=== PATIENT | male | born 1940 | race Caucasian/White ===

== ENCOUNTER 2016-11-08 15:45 | Observation (INO) | payer MEDICARE, MEDICAID ==
[~2016-11-08] VITALS: Ht 195.6 cm; Wt 89.0 kg
[~2016-11-08 15:45] MED LIST: ACIPHEX20 MG OR; ADLT ASA LOW81 MG PO; ASPIRIN EC325 MG PO; ASPIRIN LOW DOS81 M2 PO; BABY ASPIRIN81 MG OR; CHOLESTEROL MEDICINE; CIPRO500 MG OR; CIPROFLOXACN500 MG PO; DARVOCET N-100100 - OR; DARVOCET-N 100100 MG OR; DIGOXIN0.25 MG OR; FLOMAX0.4 M1 PO; HEART MEDICINE; IMDUR30 MG PO; INDOCIN SR75 MG OR; ISOSORB MONO30 MG PO; LASIX 20 MG TAB20 MG PO; LASIX40 MG OR; LISINOPRIL10 MG PO; LISINOPRIL2.5 MG PO; LISINOPRIL5 MG PO; LOPRESSOR25 M1 PO; LOPRESSOR25 MG OR; LORTAB 7.57.5 MG PO; MEDDOSEPAK PO; NAPROSYN500 MG PO; NITROGLYCER0.4 MG SL; NO HOME MEDS; NON ASPIRI2 OR; PLAVIX75 MG OR; PLAVIX75 MG PO; PRILOSEC20 MG OR; SILVADENE1 % EX; SIMVASTATIN40 MG PO; ST JOSEPH75 MG PO; VENTOLIN HFA IN; ZOCOR10 MG PO; ZOCOR40 MG OR; ZOFRAN ODT4 MG OR; [UNRECOGNIZED DRUG - OTHER]
--- NOTE | 2016-11-08 16:04 | NUR ---
TO ROOM 13 VIA WC IN STABLE CONDITION.
--- NOTE | 2016-11-08 17:00 | NUR ---
PATIENT RESTING AWAITING LAB AND RADIOLOGY RESULTS. PATIENT DENIES ANY CHEST PAIN OR SOB AT THIS TIME
[2016-11-08 17:16] LABS: HEMATOCRIT 39.1 % (39.0-50.0); HEMOGLOBIN 13.6 g/dl (14.0-18.0); IMMATURE GRANULOCYTES 0.4 % (0.0-1.0); MEAN CELL VOLUME 87.1 fL CALC (80.0-100.0); MEAN CORPUSCULAR HGB 30.3 pG CALC (26.0-32.0); MEAN CORPUSCULAR HGB CONC 34.8 g/L CALC (32.0-36.0); NEUT# 5.76 thou/uL (1.82-7.42); RED BLOOD COUNT 4.49 mill/uL (4.70-6.10); RED CELL DISTRI WIDTH 13.5 % (11.5-15.5)
[2016-11-08 17:34] LABS: PROTHROMBIN TIME 11.2 SECONDS (9.0-12.5)
[2016-11-08 17:39] LABS: ALBUMIN 4.1 g/dL (3.2-5.0); ALKALINE PHOSPHATASE 70 u/l (38-126); AMYLASE 123 u/l (30-110); ANION GAP 17 (6-22 (CALC)); BILIRUBIN, TOTAL 0.8 mg/dL (0.0-1.4); BUN 32 mg/dL (8-23); BUN/CREATININE RATIO 14 (12-20 (CALC)); CALCIUM 9.7 mg/dL (8.4-10.2); CARBON DIOXIDE 23 mmol/l (22-30); CHLORIDE 106 mmol/l (95-108); CREATININE 2.3 mg/dL (0.7-1.3); GFR 28 ML/MIN (>=60 (CALC)); GFR FOR AFR.AMER. 34 ML/MIN (>=60 (CALC)); GLUCOSE 88 mg/dL (82-115); LIPASE 130 u/l (23-300); POTASSIUM 4.7 mmol/l (3.5-5.1); SGOT/AST 22 u/l (19-48); SGPT/ALT 24 u/l (11-66); SODIUM 141 mmol/l (137-146); TOTAL PROTEIN 7.6 g/dL (6.3-8.2)
[2016-11-08 17:51] LABS: MYOGLOBIN 97 ng/mL (0 - 121)
--- NOTE | 2016-11-08 18:00 | NUR ---
PATIENT RESTING DENIES ANY CHEST PAIN AT THIS TIME. PATIENT AWAITING ROOM ASSIGNMENT
--- NOTE | 2016-11-08 18:32 | NUR ---
MED SURG REFUSES TO TAKE REPORT ON PATIENT CHARGE NURSE NOTIFIED
--- NOTE | 2016-11-08 18:52 | NUR ---
REPORT TO REGINALDO PONCE
[2016-11-08 19:15] VITALS: BP 133/75
--- NOTE | 2016-11-08 20:00 | NUR ---
PATIENT ADMITTED FROM ER VIA STRETCHER WITH ER STAFF IN ATTENDANCE. PATIENT IS AWAKE ALERT AND ORIENTEDX3. ASSSITED TO THE BED. PATIENT WITH NO C/O PAIN AT THIS TIME. NO SOB NOTED. PATIENT WITH HEP LOCK TO RIGHT AC-SITE APPEARS HEALTHY WITH GOOD BLOOD RETURN. IVF NS HUNG ORDERED. PATIENT WITH TELE MONITORING IN PLACE. LUNGS ARE CLEAR. ABD SOFT NON-TENDER WITH BS PRESENT. NO PERIPHERAL EDEMA NOTED. PEDAL PULSES PRESENT. PATIENT ORIENTED TO ROOM AND SURROUNDINGS. INSTRUCTED PATIENT THE NEED FOR URINE SPEC WHEN HE IS ABLE TO PROVIDE. URINAL AT BEDSIDE. INSTRUCTED ON USE OF NURSE CALL LIGHT SYSTEM AND TV REMOTE. PROVIDED WITH TURKEY SANDWICH, JELLO AND DRINK. CALL LIGHT IN REACH. WILL CONT TO MONITOR.
--- NOTE | 2016-11-09 00:20 | NUR ---
PATIENT VOIDED 350CC OF JESSIKA URINE IN URINAL AND URINE SPEC OBTAINED. NO COMPLAINTS AT THIS TIME RESTING IN BED. CALL LIGHT IN REACH. WILL CONT TO MONITOR
[2016-11-09 00:30] VITALS: BP 120/65
[2016-11-09 00:32] LABS: URINE BILIRUBIN - DIPSTICK NEGATIVE (NEGATIVE); URINE BLOOD DIPSTICK NEGATIVE (NEGATIVE); URINE CLARITY SLIGHT CLOUDY; URINE COLOR YELLOW; URINE GLUCOSE - DIPSTICK NEGATIVE (NEGATIVE); URINE KETONE NEGATIVE (NEGATIVE); URINE LEUK ESTERASE NEGATIVE (NEGATIVE); URINE NITRITE - DIPSTICK NEGATIVE (Negative); URINE PH 5.5 (4.5-8.0); URINE PROTEIN - DIPSTICK NEGATIVE (NEG-TRACE); URINE SPECIFIC GRAVITY 1.025; URINE UROBILINOGEN - DIPSTICK 0.2 E.U./dL (0.2)
[2016-11-09 03:25] VITALS: BP 122/66
--- NOTE | 2016-11-09 03:49 | NUR ---
PATIENT C/O HEADACHE-NITRO OINT PATCH REMOVED AND PATIENT WAS ALREADY EDUCATED ON THE POSSIBLE S/E OF THE NITRO OINT WHICH DOES INCLUDE HEADACHE. ASSISTED TO THE SIDE OF THE BED TO VOID. CALL LIGHT IN REACH. WILL CONT TO MONITOR.
[2016-11-09 04:22] LABS: HEMATOCRIT 37.5 % (39.0-50.0); HEMOGLOBIN 12.8 g/dl (14.0-18.0); IMMATURE GRANULOCYTES 0.4 % (0.0-1.0); MEAN CELL VOLUME 87.4 fL CALC (80.0-100.0); MEAN CORPUSCULAR HGB 29.8 pG CALC (26.0-32.0); MEAN CORPUSCULAR HGB CONC 34.1 g/L CALC (32.0-36.0); NEUT# 4.38 thou/uL (1.82-7.42); RED BLOOD COUNT 4.29 mill/uL (4.70-6.10); RED CELL DISTRI WIDTH 13.6 % (11.5-15.5)
[2016-11-09 04:33] LABS: CREATININE 1.8 mg/dL (0.7-1.3); POTASSIUM 4.1 mmol/l (3.5-5.1)
--- NOTE | 2016-11-09 07:00 | NUR ---
SHIFT CHANGE REPORT FROM ISELA HAIR PLEASANTLY AWAKE ALERT AND ORIENTED SITTING UP IN BED, DENIES DISCOMFORT OF ANY SORT AT THIS TIME, IVF INFUSING, TELE MONITOR IN PLACE, CALL NIEVES IN REACH.
[2016-11-09 08:17] VITALS: BP 140/73
[2016-11-09 11:44] VITALS: BP 105/61
--- NOTE | 2016-11-09 13:30 | NUR ---
Discharge instructions given. Patient verbalizes understanding of same. Discharged in good condition via Wheelchair to Home with family. All belongings sent with pt.
== END 2016-11-09 13:20 | disposition home or self-care (01) ==
LOC: ENPENDDIS → ED 15:45 → ED-I 17:50 → ED 18:22 → MS2 18:23
PROVIDERS: Emergency Medicine; ADMIT Internal Medicine; ATTEND Internal Medicine
DX: R07.2 Precordial pain (principal); N17.9 Acute kidney failure, unspecified; I25.10 Atherosclerotic heart disease of native coronary artery without angina pectoris; N18.4 Chronic kidney disease, stage 4 (severe); I12.9 Hypertensive chronic kidney disease with stage 1 through stage 4 chronic kidney disease, or unspecified chronic kidney disease; E78.5 Hyperlipidemia, unspecified; E86.0 Dehydration; Z95.1 Presence of aortocoronary bypass graft; Z85.46 Personal history of malignant neoplasm of prostate; R06.02 Shortness of breath

== ENCOUNTER 2017-03-11 11:54 | Observation (INO) | payer MEDICARE, MEDICAID ==
[~2017-03-11] VITALS: Ht 195.6 cm; Wt 84.5 kg
--- NOTE | 2017-03-11 12:00 | NUR ---
PT ARRIVES AND IMMEDIATELY TO ROOM 9 VIA WC.
[2017-03-11 12:26] LABS: HEMATOCRIT 36.9 % (39.0-50.0); HEMOGLOBIN 12.9 g/dl (14.0-18.0); MEAN CELL VOLUME 88.3 fL CALC (80.0-100.0); MEAN CORPUSCULAR HGB 30.9 pG CALC (26.0-32.0); NEUT# 5.38 thou/uL (1.82-7.42); RED BLOOD COUNT 4.18 mill/uL (4.70-6.10); RED CELL DISTRI WIDTH 13.2 % (11.5-15.5)
[2017-03-11 12:51] LABS: ALBUMIN 4.2 g/dL (3.2-5.0); BILIRUBIN, TOTAL 0.9 mg/dL (0.0-1.4); CALCIUM 9.4 mg/dL (8.4-10.2); CREATININE 1.7 mg/dL (0.7-1.3); POTASSIUM 4.1 mmol/l (3.5-5.1); TOTAL PROTEIN 7.4 g/dL (6.3-8.2)
--- NOTE | 2017-03-11 13:29 | NUR ---
SBAR PRINTED TO FLOOR
--- NOTE | 2017-03-11 13:53 | NUR ---
ATTEMPTED REPORT TO MEDSURG NURSE, MEDSURG NURSE IN PATIENT ROOM
--- NOTE | 2017-03-11 14:13 | NUR ---
ATTEMPTED TO CALL REPORT AGAIN ON PT, NURSE ON [facility] STILL IN ROOM
--- NOTE | 2017-03-11 14:39 | NUR ---
NURSE ON MEDSURG NOT AVAILABLE FOR REPORT
--- NOTE | 2017-03-11 15:02 | NUR ---
REPORT PROVIDED TO ROSARIO WALKER
--- NOTE | 2017-03-11 15:10 | NUR ---
REPORT RECEIVED FROM CANDIE IN ED, PT ARRIVED ON UNIT VIA STRETCHER AND TRANSFERRED TO BED, ALERT AND ORIENTED X 3, ORIENTED TO ROOM AND CALL NIEVES, DENIES PAIN AT THIS TIME, TELE MONITOR IN PLACE, CALL NIEVES IN REACH.
[2017-03-11 15:22] VITALS: BP 108/55
--- NOTE | 2017-03-11 18:02 | NUR ---
MESSAGE FROM DR LUGO THAT HE WILL PLACE ORDERS LATER WHEN OFF STREET.
[2017-03-11 19:07] VITALS: BP 124/64
--- NOTE | 2017-03-11 20:00 | NUR ---
PT IN [place] WATCHING TV RESTPIRATIONS EVEN AND UNLABORED, DENIES CHEST PAIN. FAMILY AT BED SIDE. TELE IN PLACE. CALL LIGHT IN REACH.
[2017-03-11 21:18] LABS: URINE BILIRUBIN - DIPSTICK NEGATIVE (NEGATIVE); URINE BLOOD DIPSTICK NEGATIVE (NEGATIVE); URINE CLARITY CLEAR; URINE COLOR YELLOW; URINE GLUCOSE - DIPSTICK NEGATIVE (NEGATIVE); URINE KETONE NEGATIVE (NEGATIVE); URINE LEUK ESTERASE NEGATIVE (NEGATIVE); URINE NITRITE - DIPSTICK NEGATIVE (Negative); URINE PH 5.5 (4.5-8.0); URINE PROTEIN - DIPSTICK NEGATIVE (NEG-TRACE); URINE SPECIFIC GRAVITY 1.025
--- NOTE | 2017-03-11 21:22 | NUR ---
PO MEDS GIVEN ABLE TO SWALLOWED THEM AT ONE TIME WITH SIPS OF TEA.
[2017-03-11 23:15] VITALS: BP 116/65
--- NOTE | 2017-03-12 00:20 | NUR ---
RESTING WITH EYES CLOSED, RESPIRATIONS EVEN AND UNLABORED.
[2017-03-12 03:40] VITALS: BP 115/63
--- NOTE | 2017-03-12 05:26 | NUR ---
MORNING BLOOD WORK DRAWN BY DIRECTOR OF REVENUE CYCLE MANAGEMENT, TOLERATED WELL.
[2017-03-12 06:10] LABS: CHOLESTEROL HDL RATIO 2.6 (<4.4 (CALC))
--- NOTE | 2017-03-12 07:00 | NUR ---
RECEIVED BEDSIDE REPORT FROM SHANNON STEVENS. RESTING IN SEMI FOWLERS WITH EYES OPEN. RESPS EVEN AND UNLABORED ON ROOM AIR, TELE MONITOR IN PLACE. DENIES CHEST PAIN OR DISCOMFORT. PLAN OF CARE DISCUSSED. SAFETY PRECAUTIONS REINFORCED. BED IN LOWEST POSITIUON WITH WHEELS LOCKED. CALL LIGHT WITHIN REACH. ENCOURAGED PT TO CALL FOR ANY NEEDS.
[2017-03-12 07:27] VITALS: BP 118/63
[2017-03-12 11:14] VITALS: BP 110/56
--- NOTE | 2017-03-12 12:05 | NUR ---
DR BOSWELL IN WITH PT, NEW ORDERS RECEIVED.
[2017-03-12] MEDS ORDERED: ASPIRIN ADULT L81 M2 PO (12:20)
[2017-03-12] MEDS ORDERED: TESSALON PERLE100 MG PO (12:21)
[2017-03-12] MEDS ORDERED: NITROSTAT0.3 MG SL (12:21)
--- NOTE | 2017-03-12 13:00 | NUR ---
Discharge instructions given. Patient verbalizes understanding of same. Discharged in stable condition via Wheelchair to Home with family. All belongings sent with pt.
== END 2017-03-12 12:59 | disposition home or self-care (01) ==
LOC: ED 11:54 → ED-I 13:17 → ED 13:35 → MS2 13:36
PROVIDERS: Family Medicine; ADMIT Internal Medicine; ATTEND Internal Medicine
DX: R07.9 Chest pain, unspecified (principal); I25.10 Atherosclerotic heart disease of native coronary artery without angina pectoris; I12.9 Hypertensive chronic kidney disease with stage 1 through stage 4 chronic kidney disease, or unspecified chronic kidney disease; N18.3 Chronic kidney disease, stage 3 (moderate); E78.5 Hyperlipidemia, unspecified; R59.0 Localized enlarged lymph nodes; J38.00 Paralysis of vocal cords and larynx, unspecified; R63.4 Abnormal weight loss; Z95.1 Presence of aortocoronary bypass graft; Z92.3 Personal history of irradiation; Z85.46 Personal history of malignant neoplasm of prostate

== ENCOUNTER 2017-03-22 16:32 | Emergency (ER) | payer MEDICARE, MEDICAID ==
[~2017-03-22] VITALS: Ht 195.6 cm; Wt 84.1 kg
[~2017-03-22 16:32] MED LIST changes: +ASPIRIN ADULT L81 M2 PO; +NITROSTAT0.3 MG SL; +TESSALON PERLE100 MG PO
[2017-03-22 17:21] LABS: HEMATOCRIT 32.7 % (39.0-50.0); HEMOGLOBIN 11.6 g/dl (14.0-18.0); IMMATURE GRANULOCYTES 0.3 % (0.0-1.0); MEAN CORPUSCULAR HGB 30.9 pG CALC (26.0-32.0); MEAN CORPUSCULAR HGB CONC 35.5 g/L CALC (32.0-36.0); NEUT# 4.92 thou/uL (1.82-7.42); RED BLOOD COUNT 3.76 mill/uL (4.70-6.10); RED CELL DISTRI WIDTH 12.9 % (11.5-15.5)
[2017-03-22 17:40] LABS: ALBUMIN 3.8 g/dL (3.2-5.0); CREATININE 1.4 mg/dL (0.7-1.3); POTASSIUM 3.8 mmol/l (3.5-5.1); TOTAL PROTEIN 7.1 g/dL (6.3-8.2)
[2017-03-22] MEDS ORDERED: CLOPIDOGREL75 MG PO (18:25)
[2017-03-22] MEDS ORDERED: PANTOPRAZOLE SO40 MG PO (18:26)
[2017-03-22] MEDS ORDERED: LORTAB 5/3255 MG PO (18:32)
[2017-03-22] MEDS ORDERED: LEVAQUIN500 MG PO (18:45)
[2017-03-22 19:20] VITALS: BP 176/85
== END 2017-03-22 19:20 | disposition home or self-care (01) ==
LOC: ED 16:32
PROVIDERS: Emergency Medicine
DX: R09.1 Pleurisy (principal); I80.8 Phlebitis and thrombophlebitis of other sites; N18.9 Chronic kidney disease, unspecified; I25.10 Atherosclerotic heart disease of native coronary artery without angina pectoris; E78.5 Hyperlipidemia, unspecified; C43.9 Malignant melanoma of skin, unspecified; Z95.1 Presence of aortocoronary bypass graft; Z92.3 Personal history of irradiation; Z85.038 Personal history of other malignant neoplasm of large intestine; Z85.46 Personal history of malignant neoplasm of prostate

== ENCOUNTER 2017-05-29 12:16 | Emergency (ER) | payer MEDICARE, MEDICAID ==
[~2017-05-29] VITALS: Ht 195.6 cm; Wt 80.0 kg
[~2017-05-29 12:16] MED LIST changes: +CLOPIDOGREL75 MG PO; +LEVAQUIN500 MG PO; +LORTAB 5/3255 MG PO; +PANTOPRAZOLE SO40 MG PO
[2017-05-29] MEDS ORDERED: PREDNISONE50 MG PO (13:13)
[2017-05-29 13:22] VITALS: BP 119/77
== END 2017-05-29 13:53 | disposition home or self-care (01) ==
LOC: ED 12:16
DX: T78.40XA Allergy, unspecified, initial encounter (principal); I25.10 Atherosclerotic heart disease of native coronary artery without angina pectoris; E78.5 Hyperlipidemia, unspecified; N18.9 Chronic kidney disease, unspecified; Z95.1 Presence of aortocoronary bypass graft; Z85.46 Personal history of malignant neoplasm of prostate; Z85.038 Personal history of other malignant neoplasm of large intestine; Z85.118 Personal history of other malignant neoplasm of bronchus and lung; Z92.3 Personal history of irradiation

== ENCOUNTER 2017-07-11 19:29 | Inpatient (IN) | payer MEDICARE, MEDICAID ==
[~2017-07-11] VITALS: Ht 195.6 cm; Wt 79.0 kg
[~2017-07-11 19:29] MED LIST changes: +PREDNISONE50 MG PO
[2017-07-11 20:04] LABS: HEMATOCRIT 37.3 % (39.0-50.0); HEMOGLOBIN 13.1 g/dl (14.0-18.0); MEAN CELL VOLUME 90.8 fL CALC (80.0-100.0); MEAN CORPUSCULAR HGB 31.9 pG CALC (26.0-32.0); MEAN CORPUSCULAR HGB CONC 35.1 g/L CALC (32.0-36.0); NEUT# 19.85 thou/uL (1.82-7.42); RED BLOOD COUNT 4.11 mill/uL (4.70-6.10); RED CELL DISTRI WIDTH 16.4 % (11.5-15.5)
[2017-07-11] MEDS ORDERED: OXYCODONE HCL5 MG PO (20:14)
[2017-07-11] MEDS ORDERED: PROCHLORPERAZINE5 MG PO (20:16)
[2017-07-11 20:20] LABS: ALBUMIN 3.9 g/dL (3.2-5.0); BILIRUBIN, TOTAL 1.1 mg/dL (0.0-1.4); CALCIUM 9.4 mg/dL (8.4-10.2); CREATININE 1.5 mg/dL (0.7-1.3); IMMATURE GRANULOCYTES 19.1 % (0.0-1.0); POTASSIUM 3.8 mmol/l (3.5-5.1); TOTAL PROTEIN 6.9 g/dL (6.3-8.2)
[2017-07-11 20:21] LABS: ACT PARTIAL THROMBO TIME 26.9 SECONDS (20.0-32.5); PROTHROMBIN TIME 11.5 SECONDS (9.0-12.5)
[2017-07-11 21:01] LABS: URINE BILIRUBIN - DIPSTICK NEGATIVE (NEGATIVE); URINE BLOOD DIPSTICK NEGATIVE (NEGATIVE); URINE COLOR YELLOW; URINE GLUCOSE - DIPSTICK NEGATIVE (NEGATIVE); URINE KETONE NEGATIVE (NEGATIVE); URINE LEUK ESTERASE NEGATIVE (NEGATIVE); URINE NITRITE - DIPSTICK NEGATIVE (Negative); URINE PROTEIN - DIPSTICK NEGATIVE (NEG-TRACE); URINE SPECIFIC GRAVITY 1.025; URINE UROBILINOGEN - DIPSTICK 0.2 E.U./dL (0.2)
[2017-07-11 21:04] LABS: URINE CLARITY CLEAR
[2017-07-11 22:00] VITALS: BP 120/54
[2017-07-11 23:51] VITALS: BP 113/67
[2017-07-12 04:23] VITALS: BP 130/68
[2017-07-12 04:32] LABS: ALBUMIN 3.2 g/dL (3.2-5.0); BILIRUBIN, TOTAL 0.8 mg/dL (0.0-1.4); CREATININE 1.4 mg/dL (0.7-1.3); POTASSIUM 3.8 mmol/l (3.5-5.1); TOTAL PROTEIN 5.8 g/dL (6.3-8.2)
[2017-07-12 04:52] LABS: HEMATOCRIT 35.3 % (39.0-50.0); HEMOGLOBIN 12.2 g/dl (14.0-18.0); MEAN CELL VOLUME 92.9 fL CALC (80.0-100.0); MEAN CORPUSCULAR HGB 32.1 pG CALC (26.0-32.0); MEAN CORPUSCULAR HGB CONC 34.6 g/L CALC (32.0-36.0); PLATELET COUNT 244 thou/uL (130-400); RED CELL DISTRI WIDTH 16.8 % (11.5-15.5)
[2017-07-12 05:21] LABS: BAND 16 % (0-8); MANUAL DIFFERENTIAL YES; PLATELET ESTIMATE NORMAL
[2017-07-12 05:22] LABS: IMMATURE GRANULOCYTES 16.4 % (0.0-1.0)
[2017-07-12 08:21] VITALS: BP 115/61
[2017-07-12 08:36] LABS: MAGNESIUM 1.7 mg/dL (1.6-2.3)
[2017-07-12 11:26] VITALS: BP 141/71
== END 2017-07-12 12:20 | disposition home or self-care (01) | DRG 313 ==
LOC: ED 19:29 → ED-I 21:05 → ED 21:20 → MS2 21:21
PROVIDERS: Emergency Medicine; Nurse Practitioner Family; ADMIT Internal Medicine; ATTEND Internal Medicine
DX: R07.89 Other chest pain (principal); I25.118 Atherosclerotic heart disease of native coronary artery with other forms of angina pectoris; C83.10 Mantle cell lymphoma, unspecified site; J38.00 Paralysis of vocal cords and larynx, unspecified; I12.9 Hypertensive chronic kidney disease with stage 1 through stage 4 chronic kidney disease, or unspecified chronic kidney disease; N18.3 Chronic kidney disease, stage 3 (moderate); E78.5 Hyperlipidemia, unspecified; I25.2 Old myocardial infarction; R13.10 Dysphagia, unspecified; R63.0 Anorexia; N40.0 Benign prostatic hyperplasia without lower urinary tract symptoms; D64.9 Anemia, unspecified; F32.9 Major depressive disorder, single episode, unspecified; Z85.46 Personal history of malignant neoplasm of prostate; Z95.1 Presence of aortocoronary bypass graft; Z79.899 Other long term (current) drug therapy
CPT/HCPCS: J0692; J3370

== ENCOUNTER 2017-09-18 17:48 | Emergency (ER) | payer MEDICARE, MEDICAID ==
[~2017-09-18] VITALS: Ht 195.6 cm; Wt 77.3 kg
[~2017-09-18 17:48] MED LIST changes: +OXYCODONE HCL5 MG PO; +PROCHLORPERAZINE5 MG PO
[2017-09-18 18:25] LABS: HEMATOCRIT 33.5 % (39.0-50.0); HEMOGLOBIN 11.6 g/dl (14.0-18.0); IMMATURE GRANULOCYTES 0.5 % (0.0-1.0); MEAN CELL VOLUME 92.3 fL CALC (80.0-100.0); MEAN CORPUSCULAR HGB CONC 34.6 g/L CALC (32.0-36.0); NEUT# 7.37 thou/uL (1.82-7.42); RED BLOOD COUNT 3.63 mill/uL (4.70-6.10); RED CELL DISTRI WIDTH 14.1 % (11.5-15.5)
[2017-09-18 18:52] LABS: ALBUMIN 3.9 g/dL (3.2-5.0); ALKALINE PHOSPHATASE 111 u/l (38-126); ANION GAP 15 (6-22 (CALC)); BILIRUBIN, TOTAL 0.7 mg/dL (0.0-1.4); BUN 19 mg/dL (8-23); BUN/CREATININE RATIO 13 (12-20 (CALC)); CARBON DIOXIDE 23 mmol/l (22-30); CHLORIDE 109 mmol/l (95-108); CREATININE 1.4 mg/dL (0.7-1.3); GFR 49 ML/MIN (>=60 (CALC)); GFR FOR AFR.AMER. 59 ML/MIN (>=60 (CALC)); POTASSIUM 4.2 mmol/l (3.5-5.1); SGOT/AST 30 u/l (19-48); SGPT/ALT 26 u/l (11-66); SODIUM 143 mmol/l (137-146); TOTAL PROTEIN 6.6 g/dL (6.3-8.2)
[2017-09-18 19:03] LABS: MYOGLOBIN 29 ng/mL (0 - 121)
[2017-09-18 20:15] LABS: URINE BILIRUBIN - DIPSTICK NEGATIVE (NEGATIVE); URINE BLOOD DIPSTICK NEGATIVE (NEGATIVE); URINE COLOR YELLOW; URINE GLUCOSE - DIPSTICK NEGATIVE (NEGATIVE); URINE KETONE NEGATIVE (NEGATIVE); URINE LEUK ESTERASE NEGATIVE (NEGATIVE); URINE NITRITE - DIPSTICK NEGATIVE (Negative); URINE PH 5.5 (4.5-8.0); URINE PROTEIN - DIPSTICK NEGATIVE (NEG-TRACE); URINE SPECIFIC GRAVITY 1.025
[2017-09-18 20:17] LABS: URINE CLARITY CLEAR
[2017-09-18 20:38] VITALS: BP 175/91
== END 2017-09-18 20:52 | disposition home or self-care (01) ==
LOC: ED 17:48
PROVIDERS: Emergency Medicine
DX: R53.1 Weakness (principal); C14.0 Malignant neoplasm of pharynx, unspecified; I25.2 Old myocardial infarction; Z85.46 Personal history of malignant neoplasm of prostate; Z92.3 Personal history of irradiation; Z85.118 Personal history of other malignant neoplasm of bronchus and lung; Z95.1 Presence of aortocoronary bypass graft; Z79.899 Other long term (current) drug therapy

== ENCOUNTER 2017-10-03 08:06 | Inpatient (IN) | payer MEDICARE, MEDICAID ==
[~2017-10-03] VITALS: Ht 195.6 cm; Wt 76.0 kg
[2017-10-03 08:55] LABS: HEMATOCRIT 33.3 % (39.0-50.0); HEMOGLOBIN 11.6 g/dl (14.0-18.0); MEAN CELL VOLUME 91.5 fL CALC (80.0-100.0); MEAN CORPUSCULAR HGB 31.9 pG CALC (26.0-32.0); MEAN CORPUSCULAR HGB CONC 34.8 g/L CALC (32.0-36.0); NEUT# 4.56 thou/uL (1.82-7.42); RED BLOOD COUNT 3.64 mill/uL (4.70-6.10); RED CELL DISTRI WIDTH 14.6 % (11.5-15.5)
[2017-10-03 09:19] LABS: ALBUMIN 3.7 g/dL (3.2-5.0); BILIRUBIN, TOTAL 1.1 mg/dL (0.0-1.4); CREATININE 1.5 mg/dL (0.7-1.3); POTASSIUM 3.7 mmol/l (3.5-5.1); TOTAL PROTEIN 6.4 g/dL (6.3-8.2)
[2017-10-03 09:20] LABS: IMMATURE GRANULOCYTES 15.5 % (0.0-1.0)
[2017-10-03 11:54] VITALS: BP 142/62
[2017-10-03 12:17] LABS: URINE BILIRUBIN - DIPSTICK NEGATIVE (NEGATIVE); URINE BLOOD DIPSTICK NEGATIVE (NEGATIVE); URINE COLOR YELLOW; URINE GLUCOSE - DIPSTICK NEGATIVE (NEGATIVE); URINE KETONE NEGATIVE (NEGATIVE); URINE LEUK ESTERASE NEGATIVE (NEGATIVE); URINE NITRITE - DIPSTICK NEGATIVE (Negative); URINE PH 5.5 (4.5-8.0); URINE PROTEIN - DIPSTICK TRACE mg/dL (NEG-TRACE); URINE SPECIFIC GRAVITY 1.025; URINE UROBILINOGEN - DIPSTICK 0.2 E.U./dL (0.2)
[2017-10-03 12:21] LABS: URINE CLARITY CLEAR
[2017-10-03 15:34] VITALS: BP 125/57
[2017-10-03] MEDS ORDERED: PLAVIX75 MG PO (17:04)
[2017-10-03] MEDS ORDERED: ISOSORBIDE MONO60 MG PO (17:04)
[2017-10-03] MEDS ORDERED: ALLOPURINOL100 MG (17:05)
[2017-10-03 19:10] VITALS: BP 113/61
[2017-10-04 00:35] VITALS: BP 122/65
[2017-10-04 05:16] VITALS: BP 145/73
[2017-10-04 06:34] LABS: HEMATOCRIT 29.1 % (39.0-50.0); HEMOGLOBIN 9.9 g/dl (14.0-18.0); IMMATURE GRANULOCYTES 17.1 % (0.0-1.0); MEAN CELL VOLUME 92.7 fL CALC (80.0-100.0); MEAN CORPUSCULAR HGB 31.5 pG CALC (26.0-32.0); RED BLOOD COUNT 3.14 mill/uL (4.70-6.10)
[2017-10-04 06:39] LABS: CREATININE 1.5 mg/dL (0.7-1.3); MAGNESIUM 1.5 mg/dL (1.6-2.3); POTASSIUM 3.7 mmol/l (3.5-5.1)
[2017-10-04 07:13] LABS: PLATELET COUNT 70 thou/uL (130-400)
[2017-10-04 07:14] LABS: MANUAL DIFFERENTIAL YES
[2017-10-04 07:15] LABS: PLATELET ESTIMATE MARKED DECREASE
[2017-10-04 08:21] VITALS: BP 107/55
[2017-10-04 11:35] VITALS: BP 103/60
[2017-10-04 15:44] VITALS: BP 103/57
[2017-10-04 19:23] VITALS: BP 110/57
[2017-10-05] VITALS (7 sets, daily range): BP systolic 102–122; BP diastolic 53–64
[2017-10-05 05:38] LABS: CREATININE 1.6 mg/dL (0.7-1.3); MAGNESIUM 1.8 mg/dL (1.6-2.3); POTASSIUM 3.7 mmol/l (3.5-5.1)
[2017-10-05 06:50] LABS: HEMATOCRIT 27.3 % (39.0-50.0); HEMOGLOBIN 9.5 g/dl (14.0-18.0); IMMATURE CELLS 2 %; IMMATURE GRANULOCYTES 12.3 % (0.0-1.0); MANUAL DIFFERENTIAL YES; MEAN CELL VOLUME 93.2 fL CALC (80.0-100.0); MEAN CORPUSCULAR HGB 32.4 pG CALC (26.0-32.0); MEAN CORPUSCULAR HGB CONC 34.8 g/L CALC (32.0-36.0); PLATELET COUNT 52 thou/uL (130-400); RED BLOOD COUNT 2.93 mill/uL (4.70-6.10)
[2017-10-05 06:51] LABS: PLATELET ESTIMATE MARKED DECREASE
[2017-10-05 09:52] LABS: BAND 5 % (0-8)
[2017-10-06] VITALS: BP 114/62
[2017-10-06 04:39] VITALS: BP 134/62
[2017-10-06 06:29] LABS: CREATININE 1.4 mg/dL (0.7-1.3); MAGNESIUM 1.7 mg/dL (1.6-2.3); POTASSIUM 3.6 mmol/l (3.5-5.1)
[2017-10-06 07:08] LABS: HEMATOCRIT 29.5 % (39.0-50.0); HEMOGLOBIN 10.1 g/dl (14.0-18.0); IMMATURE GRANULOCYTES 5.5 % (0.0-1.0); MEAN CELL VOLUME 94.2 fL CALC (80.0-100.0); MEAN CORPUSCULAR HGB 32.3 pG CALC (26.0-32.0); MEAN CORPUSCULAR HGB CONC 34.2 g/L CALC (32.0-36.0); RED BLOOD COUNT 3.13 mill/uL (4.70-6.10); RED CELL DISTRI WIDTH 15.4 % (11.5-15.5)
[2017-10-06 07:26] LABS: PLATELET COUNT 44 thou/uL (130-400)
[2017-10-06 07:27] LABS: BAND 4 % (0-8); MANUAL DIFFERENTIAL YES
[2017-10-06 08:00] VITALS: BP 136/77
[2017-10-06 09:43] VITALS: BP 136/77
[2017-10-06] MEDS ORDERED: AUGMENTIN875TAB PO (12:58)
[2017-10-06] MEDS ORDERED: FLORASTOR250 M1 PO (12:58)
== END 2017-10-06 14:00 | disposition home or self-care (01) | DRG 809 ==
LOC: ED 08:06 → ED-I 09:35 → ED 10:30 → MS2 10:31
PROVIDERS: Emergency Medicine; Nurse Practitioner Family; ADMIT Internal Medicine; ATTEND Internal Medicine
PROC: 3E0334Z Introduction of Serum, Toxoid and Vaccine into Peripheral Vein, Percutaneous Approach (ICD-10-PCS; principal; 2017-10-04)
DX: D70.1 Agranulocytosis secondary to cancer chemotherapy (principal); C83.10 Mantle cell lymphoma, unspecified site; N17.9 Acute kidney failure, unspecified; R50.81 Fever presenting with conditions classified elsewhere; R13.10 Dysphagia, unspecified; I12.9 Hypertensive chronic kidney disease with stage 1 through stage 4 chronic kidney disease, or unspecified chronic kidney disease; N18.3 Chronic kidney disease, stage 3 (moderate); T45.1X5A Adverse effect of antineoplastic and immunosuppressive drugs, initial encounter; I25.10 Atherosclerotic heart disease of native coronary artery without angina pectoris; R07.89 Other chest pain; N40.0 Benign prostatic hyperplasia without lower urinary tract symptoms; E78.5 Hyperlipidemia, unspecified; I25.2 Old myocardial infarction; Z85.118 Personal history of other malignant neoplasm of bronchus and lung; Z86.010 Personal history of colon polyps; Z95.1 Presence of aortocoronary bypass graft; Z79.02 Long term (current) use of antithrombotics/antiplatelets; Z79.82 Long term (current) use of aspirin; Z85.46 Personal history of malignant neoplasm of prostate; Z23 Encounter for immunization
CPT/HCPCS: G0378; J1447

== ENCOUNTER 2018-05-09 12:16 | Outpatient (REF) | payer MEDICARE, MEDICAID ==
[~2018-05-09 12:16] MED LIST changes: +ALLOPURINOL100 MG; +AUGMENTIN875TAB PO; +FLORASTOR250 M1 PO; +ISOSORBIDE MONO60 MG PO
[2018-05-09 12:47] LABS: HEMATOCRIT 38.1 % (39.0-50.0); HEMOGLOBIN 13.4 g/dl (14.0-18.0); IMMATURE GRANULOCYTES 2.1 % (0.0-5.0); MEAN CELL VOLUME 93.2 fL CALC (80.0-100.0); MEAN CORPUSCULAR HGB 32.8 pG CALC (26.0-32.0); MEAN CORPUSCULAR HGB CONC 35.2 g/L CALC (32.0-36.0); NEUT# 3.75 thou/uL (1.82-7.42); RED BLOOD COUNT 4.09 mill/uL (4.70-6.10); RED CELL DISTRI WIDTH 13.8 % (11.5-15.5)
[2018-05-09 13:31] LABS: CREATININE 1.5 mg/dL (0.7-1.3)
[2018-05-09 13:32] LABS: POTASSIUM 4.5 mmol/l (3.5-5.1)
== END 2018-05-09 14:56 | disposition home or self-care (01) ==
LOC: INF 12:16 → LAB 12:16 → INF 14:56
DX: C85.10 Unspecified B-cell lymphoma, unspecified site (principal); R91.8 Other nonspecific abnormal finding of lung field; C83.10 Mantle cell lymphoma, unspecified site

== ENCOUNTER 2018-07-01 03:17 | Emergency (ER) | payer MEDICARE, MEDICAID ==
[~2018-07-01] VITALS: Ht 195.6 cm; Wt 81.8 kg
[2018-07-01 04:30] LABS: HEMOGLOBIN 12.8 g/dl (14.0-18.0); IMMATURE GRANULOCYTES 5.6 % (0.0-5.0); MEAN CELL VOLUME 93.8 fL CALC (80.0-100.0); MEAN CORPUSCULAR HGB 33.3 pG CALC (26.0-32.0); MEAN CORPUSCULAR HGB CONC 35.6 g/L CALC (32.0-36.0); PLATELET COUNT 193 thou/uL (130-400); RED BLOOD COUNT 3.84 mill/uL (4.70-6.10); RED CELL DISTRI WIDTH 13.8 % (11.5-15.5)
[2018-07-01 04:43] LABS: ALBUMIN 3.9 g/dL (3.2-5.0); ALKALINE PHOSPHATASE 106 u/l (38-126); ANION GAP 12 (6-22 (CALC)); BILIRUBIN, TOTAL 0.8 mg/dL (0.0-1.4); BUN 26 mg/dL (8-23); BUN/CREATININE RATIO 15 (12-20 (CALC)); CARBON DIOXIDE 26 mmol/l (22-30); CHLORIDE 109 mmol/l (95-108); CREATININE 1.8 mg/dL (0.7-1.3); GFR 37 ML/MIN (>=60 (CALC)); GFR FOR AFR.AMER. 44 ML/MIN (>=60 (CALC)); SGOT/AST 27 u/l (19-48); SODIUM 143 mmol/l (137-146); TOTAL PROTEIN 6.8 g/dL (6.3-8.2)
[2018-07-01 04:44] LABS: ETHYL ALCOHOL < 10 mg/dl (0-30); MANUAL DIFFERENTIAL YES
[2018-07-01 04:44] LABS: URINE BILIRUBIN - DIPSTICK NEGATIVE (NEGATIVE); URINE BLOOD DIPSTICK LARGE (NEGATIVE); URINE CLARITY TURBID; URINE COLOR RED; URINE GLUCOSE - DIPSTICK NEGATIVE (NEGATIVE); URINE KETONE NEGATIVE (NEGATIVE); URINE LEUK ESTERASE NEGATIVE (NEGATIVE); URINE NITRITE - DIPSTICK NEGATIVE (Negative); URINE PH 6.5 (4.5-8.0); URINE PROTEIN - DIPSTICK >=300 mg/dL (NEG-TRACE); URINE UROBILINOGEN - DIPSTICK 0.2 E.U./dL (0.2)
[2018-07-01 04:45] LABS: URINE RBC >100 RBC/hpf (0-5); URINE WBC 0-2 WBC/hpf (0-5)
[2018-07-01 04:47] LABS: BARBITURATES NEGATIVE (NEGATIVE); COCAINE NEGATIVE (NEGATIVE); METHADONE NEGATIVE (NEGATIVE); OXCYCODONE NEGATIVE (NEGATIVE); TETRAHYDROCANNABIONOL NEGATIVE (NEGATIVE); TRICYLIC ANTIDEPRESSANTS NEGATIVE (NEGATIVE)
[2018-07-01] MEDS ORDERED: BACTRIM DS1 TAB PO (05:04)
[2018-07-01 06:00] VITALS: BP 164/85
== END 2018-07-01 06:00 | disposition home or self-care (01) ==
LOC: ED 03:17
PROVIDERS: Family Medicine
PROC: 0T9B70Z Drainage of Bladder with Drainage Device, Via Natural or Artificial Opening (ICD-10-PCS; principal; 2018-07-01)
DX: R31.9 Hematuria, unspecified (principal); N18.4 Chronic kidney disease, stage 4 (severe); E78.5 Hyperlipidemia, unspecified; I25.2 Old myocardial infarction; I25.10 Atherosclerotic heart disease of native coronary artery without angina pectoris; Z95.1 Presence of aortocoronary bypass graft; Z85.46 Personal history of malignant neoplasm of prostate; Z85.118 Personal history of other malignant neoplasm of bronchus and lung; Z92.3 Personal history of irradiation
CPT/HCPCS: J2060

== ENCOUNTER 2018-10-11 19:10 | Inpatient (IN) | payer MEDICARE, MEDICAID ==
[~2018-10-11] VITALS: Ht 195.6 cm; Wt 83.1 kg
[~2018-10-11 19:10] MED LIST changes: +BACTRIM DS1 TAB PO
--- NOTE | 2018-10-11 19:22 | NUR ---
PT STATES HE IS NOT TAKING ANY MEDICATIONS AT THIS TIME
--- NOTE | 2018-10-11 19:25 | NUR ---
DR SOARES AT BEDSIDE.
[2018-10-11 20:15] LABS: HEMOGLOBIN 11.8 g/dl (14.0-18.0); MEAN CELL VOLUME 90.7 fL CALC (80.0-100.0); MEAN CORPUSCULAR HGB 30.6 pG CALC (26.0-32.0); MEAN CORPUSCULAR HGB CONC 33.7 g/L CALC (32.0-36.0); NEUT# 4.17 thou/uL (1.82-7.42); RED BLOOD COUNT 3.86 mill/uL (4.70-6.10); RED CELL DISTRI WIDTH 13.6 % (11.5-15.5)
[2018-10-11 20:16] LABS: IMMATURE GRANULOCYTES 12.9 % (0.0-5.0)
--- NOTE | 2018-10-11 20:27 | NUR ---
PT RELATED PAIN MED HAS HELPED HIS PAIN.
[2018-10-11 20:35] LABS: ALBUMIN 3.7 g/dL (3.2-5.0); BILIRUBIN, TOTAL 1.1 mg/dL (0.0-1.4); CREATININE 1.7 mg/dL (0.7-1.3); POTASSIUM 3.9 mmol/l (3.5-5.1); TOTAL PROTEIN 7.1 g/dL (6.3-8.2)
--- NOTE | 2018-10-11 21:20 | NUR ---
FAMILY AT BEDSIDE. PT RELATED PAIN HAS DECREASED.
[2018-10-11 23:19] LABS: URINE BLOOD DIPSTICK SMALL (NEGATIVE); URINE COLOR YELLOW; URINE GLUCOSE - DIPSTICK 100 mg/dL (NEGATIVE); URINE KETONE NEGATIVE (NEGATIVE); URINE LEUK ESTERASE TRACE (NEGATIVE); URINE NITRITE - DIPSTICK NEGATIVE (Negative); URINE PH 5.5 (4.5-8.0); URINE PROTEIN - DIPSTICK 30 mg/dL (NEG-TRACE); URINE SPECIFIC GRAVITY 1.025; URINE UROBILINOGEN - DIPSTICK >=8.0 E.U./dL (0.2)
[2018-10-11 23:23] LABS: URINE BILIRUBIN - DIPSTICK NEGATIVE (NEGATIVE)
[2018-10-11 23:27] LABS: URINE BACTERIA FEW hpf; URINE SQUAMOUS EPITHELIAL CELL RARE EPI/hpf (0-FEW)
--- NOTE | 2018-10-11 23:31 | NUR ---
PT TO CT.
--- NOTE | 2018-10-12 00:01 | NUR ---
RETURNED FROM CT.
--- NOTE | 2018-10-12 00:09 | NUR ---
PT SLEEPING, CALL NIEVES IN REACH.
--- NOTE | 2018-10-12 00:27 | NUR ---
PT VOMITING, DR SOARES INFORMED.
--- NOTE | 2018-10-12 00:48 | NUR ---
PT RELATED NAUSEA HAS IMPROVED.
--- NOTE | 2018-10-12 02:05 | NUR ---
REPORT CALLED TO [facility].
--- NOTE | 2018-10-12 02:15 | NUR ---
PT TO RM 260 WITH RN ON TELE. PT COND STABLE.
[2018-10-12 02:25] VITALS: BP 153/76
--- NOTE | 2018-10-12 02:35 | NUR ---
PT TRANSPORTED TO FLOOR VIA ER STAFF. PT ALERT AND ORIENTED. PT AMBULATED FROM STRETCHER TO BED X1 PERSON ASSIST. PT INCONTINENT AT TIMES OF URINE AND WEARS BRIEF. SKIN INTACT. RIGHT CHEST PORT ACCESSED IN ER. IV FLUIDS INITIATED, PORT FLUSHED WELL WITH BRISK BLOOD RETURN NOTED. ON 02 2L/M VIA NC. PT HAS NON-PRODUCTIVE COUGH. PT STATES NO BM FOR 10 DAYS, HAS FREQUENT FALLS AT HOME USES WALKER, AND STOPPED TAKING ALL MEDICATIONS A COUPLE OF MONTHS AGO. ORIENTED PT TO ROOM AND CALL LIGHT SYSTEM. SAFETY PRECAUTIONS REVIEWED. CALL LIGHT WITHIN REACH. ENCOURAGED PT TO CALL FOR ASSISTANCE. WILL CONTINUE TO MONITOR.
[2018-10-12 04:13] VITALS: BP 152/72
--- NOTE | 2018-10-12 05:46 | NUR ---
PT RESTING IN BED. ALERT AND ORIENTED. O2 AT 2L/M VIA NC. PT VOICES NO COMPLAINTS AT THIS TIME. CALL LIGHT WITHIN REACH. WILL CONTINUE TO MONITOR.
--- NOTE | 2018-10-12 08:30 | NUR ---
REPORT RECEIVED FROM HILDA HUNTER. PT SITTING UPRIGHT IN BED. DENIES PAIN. REPORTS NO APPETITE FOR THE LAST WEEK. CONCERNED ABOUT HYDRATION. PT EDUCATED ON IVF. IVF INFUSING THROUGH R CHEST PORT W/O DIFFICULTY. FALL PRECAUTIONS REINFORCED. CALL LIGHT REVIEWED AND IN REACH. DIETARY CONSULT PLACED R/T APPETITE.
[2018-10-12 09:08] VITALS: BP 148/75
[2018-10-12 11:01] VITALS: BP 133/73
--- NOTE | 2018-10-12 13:00 | NUR ---
DR. MCCLURE IN TO SEE PT. PLAN OF CARE UPDATED.
[2018-10-12 15:21] VITALS: BP 151/84
--- NOTE | 2018-10-12 16:32 | NUR ---
PT SITTING UPRIGHT IN BED. FAMILY AT BEDSIDE. DENIES COMPLAINTS AT THIS TIME. STATES "I THINK IM HUNGRY. MAYBE I CAN EAT SOME DINNER."
--- NOTE | 2018-10-12 16:38 | NUR ---
S: LIN NERI is a 78 M who presents with Pneumonia/UTI. He has a history of HTN, BPH, Prostate cancer, Dyslipidemia, CKD. All medications in patient's chart were reviewed. O: VS: BP 151/84 mmHG, P 73 bpm, RR 18 bpm, T 98.6 F W 84.8 kg, HT 77", Scr= 1.7 mg/dL, CrCl= 42.3 ml/min A: No cultures pending P: Patient is on Azithromycin 500mg IV Q24H and Rocephin 1gm IV Q24H. Vancomycin ordered for pharmacy to dose. Start Vancomycin 1250mg IV Q24H. Vancomycin trough is drawn before the 4th dose on 10/15/18 @1630. Vancomycin goal trough is between <10-15 mcg/ml>. Pharmacy will follow and or advise on antibiotics use as needed.
[2018-10-12 18:59] VITALS: BP 141/70
--- NOTE | 2018-10-12 20:13 | NUR ---
PT RESTING IN BED, NO SIGNS OF DISTRESS NOTED, RESP EVEN AND UNLABORED. PT ALERT AND ORIENTED X3, PT STATES NO BM IN 7 DAYS, BUT HAS NOT EATEN OR HAD AN APPETITE, PT PASSING GAS AND BS ACTIVE X4, DIETARY CONSULT IN PLACE. DISCUSSED POC, ASSESSMENT COMPLETED, CALL LIGHT IN REACH,CONTINUE TO MONITOR.
--- NOTE | 2018-10-12 22:10 | NUR ---
PT RESTING IN BED, NO SIGNS OF DISTRESS NOTED, RESP EVEN AND UNLABORED. IV ROCEPHIN HUNG, PT VOICES NO NEEDS OR COMPLAINTS AT THIS TIME, CALL LIGHT IN REACH,CONTINUE TO MONITOR.
[2018-10-13] VITALS (7 sets, daily range): BP systolic 126–165; BP diastolic 68–84
--- NOTE | 2018-10-13 | NUR ---
NEW BAG OF IVF HUNG PT VOICES NO NEEDS OR COMPLAINTS AT THIS TIME. CALL LIGHT IN REACH,CONTINUE TO MONITOR.
--- NOTE | 2018-10-13 00:38 | NUR ---
PT RESTING IN BED, C/O COUGH REQUESTING COUGH SYRUP. MD CALLED AND ORDERS RECEIVED.
--- NOTE | 2018-10-13 04:00 | NUR ---
PT RESTING IN BED WITH EYES CLOSED, NO SIGNS OF DISTRESS NOTED, RESP EVEN AND UNLABORED. CALL LIGHT IN REACH,CONTINUE TO MONITOR.
[2018-10-13 05:44] LABS: HEMATOCRIT 30.8 % (39.0-50.0); HEMOGLOBIN 10.5 g/dl (14.0-18.0); MEAN CELL VOLUME 90.3 fL CALC (80.0-100.0); MEAN CORPUSCULAR HGB 30.8 pG CALC (26.0-32.0); MEAN CORPUSCULAR HGB CONC 34.1 g/L CALC (32.0-36.0); NEUT# 3.6 thou/uL (1.82-7.42); RED BLOOD COUNT 3.41 mill/uL (4.70-6.10); RED CELL DISTRI WIDTH 13.5 % (11.5-15.5)
[2018-10-13 06:24] LABS: IMMATURE GRANULOCYTES 8.9 % (0.0-5.0)
[2018-10-13 06:27] LABS: BILIRUBIN, TOTAL 0.9 mg/dL (0.0-1.4); CREATININE 1.5 mg/dL (0.7-1.3); MAGNESIUM 1.9 mg/dL (1.6-2.3); POTASSIUM 4.5 mmol/l (3.5-5.1)
[2018-10-13 06:30] LABS: ALBUMIN 2.9 g/dL (3.2-5.0); TOTAL PROTEIN 5.4 g/dL (6.3-8.2)
--- NOTE | 2018-10-13 07:00 | NUR ---
PT REPORT RECIEVED FROM HILDA PORTILLO. PT RESTING. NO S/S OF DISTRESS. CALL LIGHT IN REACH. WILL CONTINUE TO MONITOR.
--- NOTE | 2018-10-13 07:57 | NUR ---
PT A/O X3. SPEECH IS CLEAR. RESP SHALLOW. LUNG SOUNDS COARSE. O2 @2L ON PT. NONPRODUCTIVE COUGH NOTED. TELE IN PLACE. BOWEL SOUNDS ACTIVE X4. STRONG RADIAL AND PEDAL PULSES. PORT RUC NS @100. SITE APPEARS HEALTHY. PT DENIES ANY PAIN AT THIS TIME. REQUESTING SOME ROBITUSSIN. ROBITUSSIN PROVIDED. PT DENIES ANY FURTHER NEEDS. SKIN IS INTACT. POC DISCUSSED. SAFETY PRECAUTIONS IN PLACE. CALL LIGHT IN REACH. WILL CONTINUE TO MONITOR.
--- NOTE | 2018-10-13 11:58 | NUR ---
PT IN BED TALKING W/ FRIENDS. NO C/O PAIN OR NEEDS. TELE IN PLACE. CALL LIGHT IN REACH. WILL CONTINUE TO MONITOR.
--- NOTE | 2018-10-13 15:52 | NUR ---
PT WATCHING TELEVISION. NO C/O PAIN OR NEEDS. TELE IN PLACE. CALL LIGHT IN REACH. WILL CONTINUE TO MONITOR.
--- NOTE | 2018-10-13 19:00 | NUR ---
RECEIVED REPORT FROM DAY NURSE. PT RESTING IN BED WATCHING TV. NO COMPLAINTS AT THIS TIME. CALL NIEVES IN REACH. WILL CONTINUE TO MONITOR.
--- NOTE | 2018-10-13 20:20 | NUR ---
PT APPEARS ASLEEP AT THIS TIME. WAKES WITH VERBAL STIMULI.PT IS A&O x3. ASSESMENT COMPLETED AT THIS TIME(SEE INTERVENTION) LUNG SOUNDS COARSE, PT HADS COUGH AND HE STATES ITS NON PRODUCTIVE, HEART SOUNDS IRREGULAR, BOWEL SOUNDS ACTIVE, NO SWELLING OR EDEMA NOTED. PT IS SAT ARE 95% ON RA. 02 @ 2L AT BEDSIDE.NO NEEDS AT THIS TIME. CALL NIEVES IN REACH. WILL CONTINUE TO MONITOR.
--- NOTE | 2018-10-14 | NUR ---
PT RESTING QUIETLY IN BED. NO S/S OF DISTRESS NOTED. O2 AT BEDSIDE @ 2L. WILL CONTINUE TO MONITOR.
[2018-10-14 03:55] VITALS: BP 157/89
--- NOTE | 2018-10-14 04:00 | NUR ---
PT ASLEEP AT THIS TIME. RESP EVEN AND UNLABORED. CALL NIEVES IN REACH. WILL CONTINUE TO MONITOR.
[2018-10-14 05:32] LABS: HEMATOCRIT 32.7 % (39.0-50.0); HEMOGLOBIN 10.9 g/dl (14.0-18.0); MEAN CELL VOLUME 90.3 fL CALC (80.0-100.0); MEAN CORPUSCULAR HGB 30.1 pG CALC (26.0-32.0); MEAN CORPUSCULAR HGB CONC 33.3 g/L CALC (32.0-36.0); NEUT# 3.43 thou/uL (1.82-7.42); RED BLOOD COUNT 3.62 mill/uL (4.70-6.10); RED CELL DISTRI WIDTH 13.4 % (11.5-15.5)
[2018-10-14 05:33] LABS: IMMATURE GRANULOCYTES 7.6 % (0.0-5.0)
[2018-10-14 06:09] LABS: ALBUMIN 3.1 g/dL (3.2-5.0); BILIRUBIN, TOTAL 0.8 mg/dL (0.0-1.4); CREATININE 1.4 mg/dL (0.7-1.3); POTASSIUM 4.2 mmol/l (3.5-5.1); TOTAL PROTEIN 5.8 g/dL (6.3-8.2)
--- NOTE | 2018-10-14 07:05 | NUR ---
PT REPORT RECIEVED FROM HILDA PARMAR. PT SLEEPING. NO S/S OF DISTRESS. CALL LIGHT IN REACH. WILL CONTINUE TO MONITOR.
[2018-10-14 07:39] VITALS: BP 151/85
--- NOTE | 2018-10-14 07:39 | NUR ---
PT A/O X3. SPEECH IS CLEAR. NONPRODUCTIVE COUGH NOTED. RESP EVEN AND UNLABORED. LUNG SOUNDS CLEAR. O2 @2L AT BEDSIDE. TELE IN PLACE. BOWEL SOUNDS ACTIVE X4. STRONG RADIAL AND PEDAL PULSES. PORT TO RUC SL. FLUSHED AND PATENT. SITE APPEARS HEALTHY. SKIN INTACT. PT DENIES ANY PAIN OR NEEDS. POC DISCUSSED. SAFETY PRECAUTIONS IN PLACE. CALL LIGHT IN REACH. WILL CONTINUE TO MONITOR.
--- NOTE | 2018-10-14 11:50 | NUR ---
PT EATING LUNCH TALKING W/ BROTHER. TELE IN PLACE. NO C/O PAIN OR NEEDS. CALL LIGHT IN REACH. WILL CONTINUE TO MONITOR.
[2018-10-14 13:11] VITALS: BP 160/89
--- NOTE | 2018-10-14 16:22 | NUR ---
PT RESTING IN BED. NO C/O PAIN OR NEEDS. CALL LIGHT IN REACH. WILL CONTINUE TO MONITOR.
[2018-10-14 16:25] VITALS: BP 170/81
[2018-10-14 19:00] VITALS: BP 138/68
--- NOTE | 2018-10-14 19:45 | NUR ---
ASSESSMENT COMPLETED; PORT TO RIGHT CHEST INTACT AND HAS GOOD BLOOD RETURN AND FLUSHES WELL; UPDATED ON POC; VOICES NO CONCERNS; PT. REQUESTS PRN COUGH MEDICATION AND PRN SLEEPING MEDICATION WITH PM MEDS; WILL BRING IN AT THAT TIME; ENCOURAGED TO CALL FOR ANY NEEDS; CALL LIGHT IS IN REACH.
[2018-10-15] VITALS (8 sets, daily range): BP systolic 117–169; BP diastolic 64–89
--- NOTE | 2018-10-15 00:02 | NUR ---
ER CALLED AND REPORTED PT. HAD 7 BEAT RUN OF V-TACH AND HR WENT UP TO 157; PT. SLEEPING AND AWAKENED AT THIS TIME; PT. ASYMPTOMATIC; B/P 169/82 AND RADIAL HR 72 AT THIS TIME; PT. DENIES CP; PT. REPORTS HE QUIT TAKING ALL HEART MEDICATIONS 5-6 MONTHS AGO D/T ALL THE MEDICATIONS HE WAS TAKING AFTER HAVING CANCER; PT. DOES NOT RECALL THE NAMES OF THE MEDS; 0002-CALLED DR. MCCLURE AND NOTIFIED HIM OF THE ABOVE NOTE; NEW ORDERS RECEIVED AND TO BE CARRIED OUT;
--- NOTE | 2018-10-15 04:08 | NUR ---
CABLE RESPOOLER IN AT BEDSIDE OBTAINING VS; NO DISTRESS NOTED; DENIES NEEDS; CALL LIGHT IS IN REACH.
--- NOTE | 2018-10-15 05:05 | NUR ---
AM LABS DRAWN VIA PORT AND FLUSHED PER PROTOCOL; C/O COUGH. MEDICATED WITH ORDERED PRN COUGH SYRUP; DENIES FURTHER NEEDS; CALL LIGHT IS IN REACH.
[2018-10-15 06:01] LABS: HEMATOCRIT 33.9 % (39.0-50.0); HEMOGLOBIN 11.3 g/dl (14.0-18.0); MEAN CELL VOLUME 90.4 fL CALC (80.0-100.0); MEAN CORPUSCULAR HGB 30.1 pG CALC (26.0-32.0); MEAN CORPUSCULAR HGB CONC 33.3 g/L CALC (32.0-36.0); PLATELET COUNT 338 thou/uL (130-400); RED BLOOD COUNT 3.75 mill/uL (4.70-6.10); RED CELL DISTRI WIDTH 13.4 % (11.5-15.5)
[2018-10-15 06:04] LABS: ALBUMIN 3.1 g/dL (3.2-5.0); BILIRUBIN, TOTAL 0.7 mg/dL (0.0-1.4); CREATININE 1.5 mg/dL (0.7-1.3); POTASSIUM 4.3 mmol/l (3.5-5.1); TOTAL PROTEIN 5.8 g/dL (6.3-8.2)
[2018-10-15 06:40] LABS: IMMATURE GRANULOCYTES 9.4 % (0.0-5.0); MANUAL DIFFERENTIAL YES
[2018-10-15 06:41] LABS: BAND 1 % (0-8)
--- NOTE | 2018-10-15 06:50 | NUR ---
PT REPORT RECIEVED FROM ROSARIO RAE. PT RESTING. NO S/S OF DISTRESS. CALL LIGHT IN REACH. WILL CONTINUE TO MONITOR.
--- NOTE | 2018-10-15 08:05 | NUR ---
PT A/O X3. SPEECH IS CLEAR. RESP SHALLOW. LUNG SOUNDS CLEAR/DIMINISHED. TELE IN PLACE. O2@2L AT THE BEDSIDE. BOWEL SOUNDS ACTIVE X4. STRONG RADIAL AND PEDAL PULSES. PORT TO RUC SL. FLUSHED AND PATENT. SITE APPEARS HEALTHY. SKIN INTACT. PT DENIES ANY PAIN OR NEEDS. POC DISCUSSED. SAFETY PRECAUTIONS IN PLACE. CALL LIGHT IN REACH. WILL CONTINUE TO MONITOR.
--- NOTE | 2018-10-15 11:16 | NUR ---
PT SLEEPING IN BED. NO C/O PAIN OR NEEDS. TELE IN PLACE. URINAL AT BEDSIDE. CALL LIGHT IN REACH. WILL CONTINUE TO MONITOR.
--- NOTE | 2018-10-15 12:15 | NUR ---
PHYSICAL THERAPY WALKING PT DOWN HALLWAYS
--- NOTE | 2018-10-15 12:29 | NUR ---
AM: PATIENT SEEN FOR GAIT AND EXERCISES. STATES SHE IS GOING HOME THIS P.M. IS CONCERNED ABOUT GOING HOME TO AN RV. DOES NOT HAVE A WALKER AT HOME. SUGGESTED SHE HAVE HER CHECK WITH THE PARK THEY LIVE THEY USUALLY HAVE EQUIPMENT LENDING. GAIT DONE WITH A 2-WHEELED ROLLING WALKER. BALANCE AND MANAGEMENT OF THE WALKER IS GOOD. SHE IS ABLE TO MAINTAIN NWB STATUS FOR 70 FEET. REINSTRUCTED IN SAFETY DURING TRANSFERS AND ON STAIRS. ACTIVE EX WITH BOTH LE DONE IN SUPINE. ENCOURAGED ANKLE PUMPS. PATIENT APPEARED TO TOLERATE TREATMENT WELL AND WAS LEFT SITTING IN THE CHAIR WITH THE CALL LIGHT AND TRAY TABLE IN EASY REACH. SECOND TREATMENT DEFERRED TODAY PATIENT STATES SHE IS GOING HOME.
--- NOTE | 2018-10-15 12:43 | NUR ---
AM: PATIENT SEEN FOR GAIT TRAINING WITH A ROLLING WALKER. STATES HE HAS A ROLLING WALKER AND CANE AT HOME HE USES INTERMITTANTLY HE STAGGERS ALOT. NO STAIRS IN HOME. PATIENT LIVES ALONE BUT HAS FAMILY IN TOWN TO ASSIST IF NEEDED. STATES HE IS GOING H0ME, NOT TO REHAB AT DISCHARGE. PATIENT AMBULATES WITH A VERY ADDUCTED GAIT PATTERN ALMOST SCISSORING DURING SWING THRU. TRIED TO CORRECT WITH VERBAL CUING BUT WITH LITTLE EFFECT. HE REQUIRES STANDBY GUARDING HE WAS MILDLY UNSTABLE EVEN WITH THE WALKER. THERAPIST STRONGLY SUGGESTED HE AMBULATE WITH THE WALKER AT HOME AND WHILE HERE IN THE HOSP. GOOD SAFETY TECHNIQUE SHOWN DURING TRANSFERS. PATIENT APPEARED TO TOLERATE TREATMENT WELL AND WAS LEFT COMFORTABLE IN THE CHAIR WITH THE CALL LIGHT AND TRAY TABLE IN REACH.
[2018-10-15 13:05] LABS: CHOLESTEROL HDL RATIO 6.4 (<4.4 (CALC))
--- NOTE | 2018-10-15 15:25 | NUR ---
PT WATCHING TELEVISION. NO C/O PAIN OR NEEDS. TELE IN PLACE. CALL LIGHT IN REACH. WILL CONTINUE TO MONITOR.
--- NOTE | 2018-10-15 19:25 | NUR ---
ASSESSMENT COMPLETED; NO DISTRESS NOTED; PT.DENIES NEEDS/PAIN; PO FLUIDS OFFERED; ENCOURAGED TO CALL FOR ANY NEEDS; CALL LIGHT IS IN REACH. WILL CONTINUE TO MONITOR.
--- NOTE | 2018-10-15 20:40 | NUR ---
PT. SITTING UP IN BED USING I/S PULLING 2500; GOAL SETTO 3000; SCHED MEDS GIVEN ALONG WITH ORDERED PRN SONATA AND ROBITUSSIN PER PTS REQUEST; CALL LIGHT IS IN REACH; DENEIS NEEDS; CALL LIGHT IS IN REACH.
--- NOTE | 2018-10-15 22:00 | NUR ---
PT. SITTING UP IN BED WITH NO DISTRESS NOTED; DENIES PAIN; RESP EVEN AND UNLABORED; ENCOURAGED TO CALL FOR ANY NEEDS; SCHED ROCEPHIN HUNG; SNACK PROVIDED; URINAL EMPTIED; CALL LIGHT IS IN REACH; WILL CONTINUE TO MONITOR.
--- NOTE | 2018-10-15 23:47 | NUR ---
PT. RESTING IN BED WITH NO DISTRESS NOTED; DENIES NEEDS/ PAIN; ENCOURAGED TO CALL FOR ANY NEEDS; CALL LIGHT IS IN REACH.
--- NOTE | 2018-10-16 04:00 | NUR ---
pt. resting in bed with no distress noted; denies needs; call light is in reach; will continue to monitor.
[2018-10-16 04:28] VITALS: BP 126/71
--- NOTE | 2018-10-16 05:45 | NUR ---
PT. RESTING IN BED WITH EYES CLOSED; RESP EVEN AND UNLABORED; URINAL EMPTIED; CALL LIGHT IS IN REACH.
--- NOTE | 2018-10-16 06:50 | NUR ---
report received from lauren rn, pt laying in bed a/o; resp even and unlabored on room air. call estrella in reach.
[2018-10-16 08:17] VITALS: BP 107/59
--- NOTE | 2018-10-16 08:25 | NUR ---
ASSESSMENT COMPLETED; A/O; PORT FLUSHED WITHOUT DIFFICULTY; TELE IN PLACE; AM MEDS ADMINISTERED; CALL NIEVES IN REACH; SAFETY PRECAUTION REINFORCE; VOICE NO CONCERNS;
[2018-10-16 12:00] VITALS: BP 168/97
--- NOTE | 2018-10-16 12:21 | NUR ---
PT SITTING UP IN BED VISITING WITH FAMILIES; RESP EVEN AND UNLABORED; VOICE NO CONCERNS; CALL INEVES IN REACH.
--- NOTE | 2018-10-16 13:42 | NUR ---
Pt resting in chair with sister present. He was withou complaints. Pt moved sit to and from stand with supervision. He ambulated 2x 75' with supervision, gait pattern was good without LOB noted. Pt did report he was unsteady at time. Pt instructed to sit on edge of bed and then stand to get his bearing before walking. Use of night lights and safety issues discussed. Pt returned to recliner with call estrella in reach.
--- NOTE | 2018-10-16 15:42 | NUR ---
S: LIN NERI is a 78 M who presents with Pneumonia. He has a history of HTN, BPH, Prostate cancer, Dyslipidemia, CKD. All medications in patient's chart were reviewed. O: VS: BP 107/59 mmHg, P 60 bpm, RR 18 bpm, T 98.1 F W 83.12 kg, HT 77", Scr= 1.5 mg/dL, CrCl= 46.95 ml/min A: Sputum culture shows normal respiratory evangelist after 48 hours P: Patient is on Azithromycin 500mg IV Q24H, Rocephin 1gm IV Q24H, and Vancomycin 1250mg IV Q24H. Vancomycin ordered for pharmacy to dose. Start Vancomycin 750mg IV Q12H. Vancomycin trough is drawn before the dose on 10/18/18 @0430. Vancomycin goal trough is between 15-20 mcg/ml>. Pharmacy will follow and or advise on antibiotics use as needed.
--- NOTE | 2018-10-16 16:06 | NUR ---
PT SITTING UP IN BED WITH EYES CLOSES; RESP EVEN AND UNLABORED; CALL NIEVES IN REACH. WILL CONTINUE TO MONITOR.
[2018-10-16 17:16] VITALS: BP 146/72
[2018-10-16 18:48] VITALS: BP 127/69
--- NOTE | 2018-10-16 21:19 | NUR ---
ASSESSMENT COMPLETED; NO DISTRESS NOTED; DENIES NEEDS/PAIN; UPDATED ON POC; ENCOURAGED TO CALL FOR ANY NEEDS; CALL LIGHT IS IN REACH; WILL CONTINUE TO MONITOR.
--- NOTE | 2018-10-16 22:15 | NUR ---
PT. MEDICATED FOR RIGHT HIP PAIN 02/14; MEDICATED WITH ORDERED TYLENOL; WILL REASSESS; SNACK PROVIDED; CALL LIGHT IS IN REACH.
--- NOTE | 2018-10-17 | NUR ---
PT. RESTING IN BED WITH NO DISTRESS NOTED; DENIES NEEDS; CALL LIGHT IS IN REACH; WILL CONTINUE TO MONITOR.
[2018-10-17 00:33] VITALS: BP 141/73
--- NOTE | 2018-10-17 03:15 | NUR ---
PT. RESTING IN BED WITH EYES CLOSED; RESP EVEN AND UNLABORED; CALL LIGHT IS IN REACH; WILL CONTINUE TO MONITOR.
[2018-10-17 03:38] VITALS: BP 125/63
[2018-10-17 05:08] LABS: HEMATOCRIT 32.9 % (39.0-50.0); MEAN CELL VOLUME 89.9 fL CALC (80.0-100.0); MEAN CORPUSCULAR HGB 30.1 pG CALC (26.0-32.0); MEAN CORPUSCULAR HGB CONC 33.4 g/L CALC (32.0-36.0); NEUT# 3.3 thou/uL (1.82-7.42); RED BLOOD COUNT 3.66 mill/uL (4.70-6.10); RED CELL DISTRI WIDTH 13.3 % (11.5-15.5)
[2018-10-17 05:38] LABS: ALBUMIN 3.2 g/dL (3.2-5.0); BILIRUBIN, TOTAL 0.7 mg/dL (0.0-1.4); CREATININE 1.4 mg/dL (0.7-1.3); MAGNESIUM 2.1 mg/dL (1.6-2.3); POTASSIUM 4.7 mmol/l (3.5-5.1); TOTAL PROTEIN 5.9 g/dL (6.3-8.2)
--- NOTE | 2018-10-17 07:00 | NUR ---
PT REPORT RECIEVED FROM ROSARIO RAE. PT WATCHING TELEVISION. NO S/S OF DISTRESS. CALL LIGHT IN REACH. WILL CONTINUE TO MONITOR.
[2018-10-17 07:39] VITALS: BP 122/64
--- NOTE | 2018-10-17 07:39 | NUR ---
PT A/O X3. SPEECH IS CLEAR. NONPRODUCTIVE COUGH NOTED. RESP EVEN AND UNLABORED. LUNG SOUNDS CLEAR. TELE IN PLACE. BOWEL SOUNDS ACTIVE X4. STRONG RADIAL AND PEDAL PULSES. PORT TO RUC SL. FLUSHED AND PATENT. GOOD BLOOD RETURN. SITE APPEARS HEALTHY. SKIN INTACT. PT DENIES ANY PAIN OR NEEDS. POC DISCUSSED. SAFETY PRECAUTIONS IN PLACE. CALL LIGHT IN REACH. WILL CONTINUE TO MONITOR.
--- NOTE | 2018-10-17 08:56 | NUR ---
Pt seen this am for treatment. He was resting in bed and cooperative with treatment. He move supine to sit indep and put on his jeans indep without LOB noted with standing. Pt ambulated 2 x150 with supervision and gait belt/non skid socks in place. No LOB noted. Pt returned to chair with call estrella and tray in reach.
[2018-10-17 12:00] VITALS: BP 138/82
--- NOTE | 2018-10-17 12:15 | NUR ---
PT SITTING UP IN BED WATCHING TELEVISION. NO C/O PAIN OR NEEDS. TELE IN PLACE. CALL LIGHT IN REACH. WILL CONTINUE TO MONITOR.
[2018-10-17] MEDS ORDERED: DOXYCYCL HYC100 MG PO (14:39)
--- NOTE | 2018-10-17 15:12 | NUR ---
D/C INSTRUCTIONS DISCUSSED W/ PT. PT STATES UNDERSTANDING. PORT DEACCESSED BY ROSARIO AVALOS. TELE REMOVED. PT GETTING DRESSED AT THIS TIME.
--- NOTE | 2018-10-17 15:20 | NUR ---
Discharge instructions given. Patient verbalizes understanding of same. Discharged in stable condition via Wheelchair to Home with family. All belongings sent with pt.
== END 2018-10-17 15:18 | disposition home or self-care (01) | DRG 190 ==
LOC: ED 19:10 → ED-I 10-12 01:40 → ED 10-12 01:57 → MS2 10-12 01:58
PROVIDERS: Emergency Medicine; Internal Medicine Nephrology; Nurse Practitioner Family; ADMIT Internal Medicine; ATTEND Internal Medicine
DX: J44.1 Chronic obstructive pulmonary disease with (acute) exacerbation (principal); J18.9 Pneumonia, unspecified organism; C83.10 Mantle cell lymphoma, unspecified site; E46 Unspecified protein-calorie malnutrition; J44.0 Chronic obstructive pulmonary disease with (acute) lower respiratory infection; I12.9 Hypertensive chronic kidney disease with stage 1 through stage 4 chronic kidney disease, or unspecified chronic kidney disease; N18.3 Chronic kidney disease, stage 3 (moderate); I25.10 Atherosclerotic heart disease of native coronary artery without angina pectoris; E78.5 Hyperlipidemia, unspecified; N40.0 Benign prostatic hyperplasia without lower urinary tract symptoms; T46.5X6A Underdosing of other antihypertensive drugs, initial encounter; T46.6X6A Underdosing of antihyperlipidemic and antiarteriosclerotic drugs, initial encounter; I25.2 Old myocardial infarction; Z85.46 Personal history of malignant neoplasm of prostate; Z85.21 Personal history of malignant neoplasm of larynx; Z92.3 Personal history of irradiation; Z95.1 Presence of aortocoronary bypass graft; Z85.118 Personal history of other malignant neoplasm of bronchus and lung; Z91.128 Patient's intentional underdosing of medication regimen for other reason; Z79.899 Other long term (current) drug therapy; Z68.22 Body mass index [BMI] 22.0-22.9, adult
CPT/HCPCS: J1650; J3370

== ENCOUNTER 2018-10-18 14:06 | Emergency (ER) | payer MEDICARE, MEDICAID ==
[~2018-10-18] VITALS: Ht 195.6 cm; Wt 100.0 kg
[~2018-10-18 14:06] MED LIST changes: +DOXYCYCL HYC100 MG PO
[2018-10-18 14:49] LABS: HEMATOCRIT 34.7 % (39.0-50.0); HEMOGLOBIN 11.6 g/dl (14.0-18.0); MEAN CORPUSCULAR HGB 29.7 pG CALC (26.0-32.0); MEAN CORPUSCULAR HGB CONC 33.4 g/L CALC (32.0-36.0); NEUT# 5.74 thou/uL (1.82-7.42); RED BLOOD COUNT 3.9 mill/uL (4.70-6.10); RED CELL DISTRI WIDTH 13.6 % (11.5-15.5)
[2018-10-18 15:00] LABS: ALBUMIN 3.8 g/dL (3.2-5.0); ALKALINE PHOSPHATASE 167 u/l (38-126); ANION GAP 13 (6-22 (CALC)); BILIRUBIN, TOTAL 0.7 mg/dL (0.0-1.4); BUN 22 mg/dL (8-23); BUN/CREATININE RATIO 13 (12-20 (CALC)); CARBON DIOXIDE 25 mmol/l (22-30); CHLORIDE 105 mmol/l (95-108); CREATININE 1.7 mg/dL (0.7-1.3); GFR 39 ML/MIN (>=60 (CALC)); GFR FOR AFR.AMER. 47 ML/MIN (>=60 (CALC)); LIPASE 159 u/l (23-300); POTASSIUM 4.2 mmol/l (3.5-5.1); SGOT/AST 38 u/l (19-48); SODIUM 139 mmol/l (137-146)
[2018-10-18 15:10] LABS: IMMATURE GRANULOCYTES 7.3 % (0.0-5.0)
[2018-10-18 15:11] LABS: TOTAL PROTEIN 7.1 g/dL (6.3-8.2)
[2018-10-18 19:49] VITALS: BP 156/88
== END 2018-10-18 20:28 | disposition home or self-care (01) ==
LOC: ED 14:06 → ED-I 14:29 → ED 20:28
PROVIDERS: Family Medicine
DX: R07.89 Other chest pain (principal); N18.4 Chronic kidney disease, stage 4 (severe); I25.10 Atherosclerotic heart disease of native coronary artery without angina pectoris; E78.5 Hyperlipidemia, unspecified; I25.2 Old myocardial infarction; Z95.1 Presence of aortocoronary bypass graft

== ENCOUNTER → 2018-10-26 | Outpatient (REF) | payer MEDICARE, MEDICAID | END | disposition home or self-care (01) | LOC: DI 15:03 | PROVIDERS: ATTEND Internal Medicine | DX: J18.9 Pneumonia, unspecified organism (principal) ==

== ENCOUNTER 2021-02-23 17:44 | Inpatient (IN) | payer MEDICARE, MEDICAID ==
[~2021-02-23] VITALS: Ht 195.6 cm; Wt 98.1 kg
--- NOTE | 2021-02-23 17:45 | NUR ---
TO ROOM TO TRIAGE BY [facility]
--- NOTE | 2021-02-23 18:23 | NUR ---
PORT ACCESSED USING STERILE TECHINQUE BY Sen KELLY RN. PT TOLERATED WITHOUT DIFFICULTY.
[2021-02-23 18:27] LABS: HEMATOCRIT 48.8 % (39.0-50.0); HEMOGLOBIN 16.5 g/dl (14.0-18.0); IMMATURE GRANULOCYTES 6.4 % (0.0-5.0); MEAN CELL VOLUME 94.8 fL CALC (80.0-100.0); MEAN CORPUSCULAR HGB CONC 33.8 g/dL CAL (32.0-36.0); NEUT# 2.45 thou/uL (1.82-7.42); RED BLOOD COUNT 5.15 mill/uL (4.70-6.10); RED CELL DISTRI WIDTH 13.9 % (11.5-15.5)
--- NOTE | 2021-02-23 18:30 | NUR ---
MEDICATED WITH MORPHINE 2MG IVP FOR C/O 02/14 CHEST PAIN.
[2021-02-23 18:42] LABS: ALKALINE PHOSPHATASE 44 u/l (38-126); BUN 14 mg/dL (8-23); BUN/CREATININE RATIO 15 (12-20 (CALC)); GFR > 60 ML/MIN (>=60 (CALC)); GFR FOR AFR.AMER. > 60 ML/MIN (>=60 (CALC)); LIPASE 83 u/l (23-300); SGOT/AST 17 u/l (19-48); SODIUM 142 mmol/l (137-146)
[2021-02-23 18:45] LABS: ANION GAP 8 (6-22 (CALC)); CARBON DIOXIDE 12 mmol/l (22-30); CHLORIDE 124 mmol/l (95-108)
[2021-02-23 18:46] LABS: ALBUMIN 1.9 g/dL (3.2-5.0); BILIRUBIN, TOTAL 0.3 mg/dL (0.0-1.4); POTASSIUM 2.1 mmol/l (3.5-5.1)
[2021-02-23 18:54] LABS: MYOGLOBIN 36 ng/mL (0 - 121)
--- NOTE | 2021-02-23 18:59 | NUR ---
REPORT GIVEN TO PEPITO PONCE.
--- NOTE | 2021-02-23 19:18 | NUR ---
Violet CRANE FLAGSTONE LAYER IN ROOM FOR PRISCILLA.
--- NOTE | 2021-02-23 19:33 | NUR ---
CALL PLACED TO ICU FOR REPORT, NURSE UNAVAILABLE.
--- NOTE | 2021-02-23 19:45 | NUR ---
TELEPHONE REPORT GIVEN TO Andrew DE ANDA RN IN ICU.
[2021-02-23 20:00] VITALS: BP 150/73
--- NOTE | 2021-02-23 20:00 | NUR ---
STAT LABS COLLECTED.
--- NOTE | 2021-02-23 20:00 | NUR ---
Transfer Information Transferred To: ICU Report Given to: VIDA DE ANDA RN Transported by: [facility] Air Other Transported with: X Nurse Transporter X Patent IV O2 X Contact Clerk
--- NOTE | 2021-02-23 20:05 | NUR ---
PATIENT ARRIVES VIA STRETCHER ACCOMPANIED BY [facility]. WALKS TO THE BED, HAS UNSTEADY GAIT. IS ALERT AND ORIENTED X3. DENIES CHEST PAIN/PRESSURE, DENIES NAUSEA. ON RA, O2 SAT 94%, NO SOB NOTED. NURSE ASSESSMENT PERFORMED. ADMISSION COMPLETED. PATIENT REPORTS HE LIVES BY HIMSELF, DRIVES HIMSELF. 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 POC DISCUSSED. SELF REPOSITIONS. USES CAN AT HOME AND REPORTS HE DID FALL AT HOME RECENTLY. EDUCATED ON SAFETY AND AGREES TO USE CALL LIGHT. CALL LIGHT WITHIN REACH.
[2021-02-23 20:15] VITALS: BP 138/69
[2021-02-23 20:30] VITALS: BP 133/68
[2021-02-23 20:45] VITALS: BP 132/72
[2021-02-23 20:53] LABS: ALBUMIN 3.7 g/dL (3.2-5.0); BILIRUBIN, TOTAL 0.9 mg/dL (0.0-1.4); POTASSIUM 4.2 mmol/l (3.5-5.1); TOTAL PROTEIN 6.5 g/dL (6.3-8.2)
[2021-02-23 21:00] VITALS: BP 122/71
--- NOTE | 2021-02-23 21:19 | NUR ---
NO ACUTE DISTRESS SHOWN. LIGHT TURNED OFF, WACTHES TV NOW.
[2021-02-23 22:00] VITALS: BP 121/66
--- NOTE | 2021-02-23 23:42 | NUR ---
PT ASSISTED TO SIT ON SIDE OF BED TO USE URINAL.
[2021-02-24] VITALS (12 sets, daily range): BP systolic 107–179; BP diastolic 66–87
--- NOTE | 2021-02-24 00:54 | NUR ---
ANTIBIOTIC INFUSING NOW. PATIENT AWAKENS WHEN SPOKEN TO. NO ACUTE DISTRESS SHOWN. NO COMPLAINTS. CALL LIGHT WITHIN REACH.
--- NOTE | 2021-02-24 04:08 | NUR ---
PATIENT SITS ON SIDE OF BED TO USE URINAL, WARM BLANKET PROVIDED FOR C/O FEELING COLD. NO ACUTE DISTRESS SHOWN. CALL LIGHT WITHIN REACH.
[2021-02-24 06:13] LABS: URINE BILIRUBIN - DIPSTICK NEGATIVE (NEGATIVE); URINE BLOOD DIPSTICK NEGATIVE (NEGATIVE); URINE COLOR YELLOW; URINE GLUCOSE - DIPSTICK NEGATIVE (NEGATIVE); URINE KETONE NEGATIVE (NEGATIVE); URINE LEUK ESTERASE NEGATIVE (NEGATIVE); URINE PH 5.5 (4.5-8.0); URINE PROTEIN - DIPSTICK NEGATIVE (NEG-TRACE); URINE SPECIFIC GRAVITY 1.025; URINE UROBILINOGEN - DIPSTICK 0.2 E.U./dL (0.2)
[2021-02-24 06:17] LABS: URINE NITRITE - DIPSTICK NEGATIVE (Negative)
--- NOTE | 2021-02-24 06:21 | NUR ---
IV ANTIBIOTIC INFUSING NOW. PATIENT IN NO ACUTE DISTRESS. NO NEEDS AT THISTIME. CALL LIGHT WITHIN REACH.
[2021-02-24 06:31] LABS: MEAN CELL VOLUME 93.9 fL CALC (80.0-100.0); MEAN CORPUSCULAR HGB 32.3 pG CALC (26.0-32.0); MEAN CORPUSCULAR HGB CONC 34.4 g/dL CAL (32.0-36.0); NEUT# 2.05 thou/uL (1.82-7.42); RED BLOOD COUNT 4.09 mill/uL (4.70-6.10); RED CELL DISTRI WIDTH 13.8 % (11.5-15.5)
[2021-02-24 06:38] LABS: HEMATOCRIT 38.4 % (39.0-50.0); HEMOGLOBIN 13.2 g/dl (14.0-18.0); IMMATURE GRANULOCYTES 15.8 % (0.0-5.0)
[2021-02-24 06:40] LABS: ALBUMIN 3.3 g/dL (3.2-5.0); POTASSIUM 4.1 mmol/l (3.5-5.1); TOTAL PROTEIN 5.9 g/dL (6.3-8.2)
[2021-02-24 06:46] LABS: BILIRUBIN, TOTAL 1.8 mg/dL (0.0-1.4)
--- NOTE | 2021-02-24 08:00 | NUR ---
PT IS ALERT AND ORIENTED X 3. PT AMBULATORY IN ROOM WITH STEADY GAIT. PT STATES CHEST PAIN IS FROM COUGHING UP PHLEGM. HE BELIEVES THAT HE HAS PNEUMONIA PER SIMILAR COUGH IN PAST WITH PNEUMONIA. LUNGS CLEAR, RA.
--- NOTE | 2021-02-24 16:43 | NUR ---
PT TO CT AND BACK TODAY. OTHERWISE, PT HAS BEEN SEEN AT REST IN THE BED IN NO ACUTE DISTRESS.
--- NOTE | 2021-02-24 17:59 | NUR ---
COUGH MED PROVIDED PER CONTINUING PRODUCTIVE COUGH AND ASSOCIATED DISCOMFORT. PT NAUSEATED, MED REQUESTED.
--- NOTE | 2021-02-24 19:25 | NUR ---
PATIENT IS AWAKE, ORIENTED X3. IS ON RA, NO SOB NOTED. NURSE ASSESSMENT PERFORMED. PATIENT C/O COUGH THAT IS HURTING HIS CHEST, HAS NOT ATEN WELL TODAY, ON/OFF NAUSEA, HAS HEADACHE. WAS OFFERED TYLENOL, COUGH MEDICATION WHEN DUE, ZOFRAN, ACCEPTS. POC DISCUSSED. R-CHEST PORT INTACT, NS INFUSING PROPERLY. SELF REPOSITIONS. CALL LIGHT WITHIN REACH.
--- NOTE | 2021-02-24 22:15 | NUR ---
PRN COUGH MEDICATION PROVIDED, PATIENT ATE 50% OF JELLO, DRANK GATORADE. LIGHTS TURNED OFF. CALL LIGHT WITHIN REACH.
[2021-02-25] VITALS (11 sets, daily range): BP systolic 114–180; BP diastolic 57–94
--- NOTE | 2021-02-25 02:23 | NUR ---
ANTIBIOTIC INFUSINF NOW. PATIENT AWKENS. NO COMPLAINTS. NO ACUTE DISTRESS SHOWN. CALL LIGHT WITHIN REACH.
--- NOTE | 2021-02-25 04:28 | NUR ---
PATIENT IS AWAKE, NO COMPLAINTS. NO NEEDS AT THIS TIME. ANTIBIOTIC INFUSING NOW. CLL LIGHT WITHIN REACH.
--- NOTE | 2021-02-25 05:01 | NUR ---
BLOOD DRAWN FROM R-CHEST PORT.
[2021-02-25 05:37] LABS: HEMATOCRIT 38.9 % (39.0-50.0); HEMOGLOBIN 13.3 g/dl (14.0-18.0); MEAN CELL VOLUME 94.9 fL CALC (80.0-100.0); MEAN CORPUSCULAR HGB 32.4 pG CALC (26.0-32.0); MEAN CORPUSCULAR HGB CONC 34.2 g/dL CAL (32.0-36.0); RED BLOOD COUNT 4.1 mill/uL (4.70-6.10); RED CELL DISTRI WIDTH 13.6 % (11.5-15.5)
[2021-02-25 06:05] LABS: CREATININE 1.8 mg/dL (0.7-1.3); POTASSIUM 4.1 mmol/l (3.5-5.1)
--- NOTE | 2021-02-25 08:21 | NUR ---
PRELIMINARY BLOOD CX SHOWS GRAM POSITIVE COCCI IN 1 OF 4 VIALS. REPORTED TO GAYATHRI. PT IS RECEIVING VANCO AND CEFEPIME, NO NEW ORDERS RECEIVED. WILL F/U WITH FINAL.
--- NOTE | 2021-02-25 08:28 | NUR ---
PT SEEN AT REST IN THE BED, APPEARS WEAK, TIRED. PT NAUSEATED, PROVIDED ZOFRAN PRIOR TO BREAKFAST BUT STILL ATE LITTLE IF ANY. ABX INFUSE INTO PORT IN RIGHT CHEST WIHTOUT DIFFICULTY.
--- NOTE | 2021-02-25 10:09 | NUR ---
PT SEEN BY DR GUILLEN THIS MORNING. PT CONTINUES WITH PURULENT PHLEGM, COUGHING A LOT. PT STATES HE DOES NOT DO WELL WITH HOSPITAL FOOD, WAS TOLD THAT HE COULD HAVE FOOD BROUGHT IN FROM THE OUTSIDE. DR GUILLEN STATES WAIT FOR BLOOD CULTURE BACTERIAL IDENTIFICATION BEFORE POSSIBLE TRANSFER FOR [facility].
--- NOTE | 2021-02-25 13:13 | NUR ---
PT AT REST IN THE BED AT THIS TIME. COUGHING HAS LESSENED FOR NOW.
--- NOTE | 2021-02-25 18:03 | NUR ---
PT PROVIDED TYLENOL FOR HEADACHE PAIN. PT RESTS IN THE BED IN NO ACUTE DISTRESS.
--- NOTE | 2021-02-25 20:00 | NUR ---
PATIENT RESTING IN BED ON ROUNDS. AWAKE, ALERT AND ORIENTED. VSS. RESP NON-LABORED. NO O2 IN USE. BREATH SOUNDS CLEAR THROUGHOUT, SLIGHTLY DIMINISHED IN BILATERAL BASES. RIGHT CHEST PORT PREVIOUSLY ACCESSED, DSG CDI, INSERTION SITE BENIGN, NS INFUSING AT 100 ML/HR. SUBSTANCE ABUSE NURSE SHOWS SR WITH 1ST DEGREE AVB. CALL NIEVES IN REACH.
--- NOTE | 2021-02-25 22:00 | NUR ---
RESTING IN BED WITHOUT COMLAINTS. VSS. SR WITH 1 ST DEGREE AVB ON MONITOR.
[2021-02-26] VITALS (15 sets, daily range): BP systolic 137–184; BP diastolic 65–96
--- NOTE | 2021-02-26 00:10 | NUR ---
AFEBRILE. VSS. RESP NON-LABORED. NO COMPLAINTS OF PAIN VOICED. VOIDS CLEAR YELLOW URINE IN URINAL.
--- NOTE | 2021-02-26 02:00 | NUR ---
PATIENT RESTING WITH EYES CLOSED. AWAKENS TO NAME. NO COMPLAINTS VOICED.
--- NOTE | 2021-02-26 04:05 | NUR ---
NO CHANGES TO REPORT. VSS. RESP NON-LABORED. SR WITH 1 ST DEGREE AVB ON MONITOR.
--- NOTE | 2021-02-26 05:20 | NUR ---
BLOOD DRAWN FROM RIGHT CHEST PORT FOR MORNING LABS ORDERED. PORT FLUSHED PRE AND POST BLOOD DRAW PER PROTOCOL.
[2021-02-26 05:42] LABS: HEMATOCRIT 37.6 % (39.0-50.0); HEMOGLOBIN 13.2 g/dl (14.0-18.0); MEAN CELL VOLUME 94.2 fL CALC (80.0-100.0); MEAN CORPUSCULAR HGB 33.1 pG CALC (26.0-32.0); MEAN CORPUSCULAR HGB CONC 35.1 g/dL CAL (32.0-36.0); RED BLOOD COUNT 3.99 mill/uL (4.70-6.10); RED CELL DISTRI WIDTH 13.6 % (11.5-15.5)
--- NOTE | 2021-02-26 05:50 | NUR ---
RESTING QUIETLY. VSS. NS INFUSING WELL AT 100 ML/HR. GOOD URINE OUTPUT THIS SHIFT.
[2021-02-26 05:59] LABS: CREATININE 1.7 mg/dL (0.7-1.3); POTASSIUM 4.1 mmol/l (3.5-5.1)
--- NOTE | 2021-02-26 08:30 | NUR ---
PT SEEN AWAKE, ALERT, ORIENTED X 3. LUNGS CLEAR,RA. PT STATES LESS PHLEGM TO HAVE TO COUGH UP. WITH LESS COUGH, LESS CHEST MUSCLE PAIN.
--- NOTE | 2021-02-26 09:59 | NUR ---
S: LIN NERI is a 80 M who presents with sepsis/bacteremia. He has a history of CA LUNG, VOCAL CORD NV, CABG, CABG X 5, PROSTATE CA W/RADIATION COLON POLYPS, HYPERLIPIDEMIA CKD STG 4. All medications in patient's chart were reviewed. O: VS: BP 159/79 mmHg, P 52 bpm, RR 14 bpm,T 98.7 F W 98.1kg, HT 77 IN, Scr= 1.7 mg/dL ,CrCl= 47.3 ml/min VANCOMYCIN TROUGH 6 mcg/mL A: Vancomycin trogh sub therapeutic. will increase the dose. Blood culture is pending. P: Patient is on Cefepime 2 GM IV Q12H and Vancomycin 1250 mg IV Q24H. Vancomycin ordered for pharmacy to dose. Inrease Vancomycin 1 gm IV Q12H. Vancomycin trough is drawn before the 4th dose on 02/27 at 1730. Vancomycin goal trough is between 15-20 mcg/ml. Pharmacy will follow and or advise on antibiotics use as needed.
--- NOTE | 2021-02-26 13:52 | NUR ---
PT HAS BEEN TO SWALLOW STUDY THIS MORNING, WAS SEEN TO BE SWALLOWING NORMALLY, NO ASPIRATION. PT AT REST IN THE BED AT THIS TIME, NO DISTRESS OR COMPLAINTS.
--- NOTE | 2021-02-26 15:56 | NUR ---
PT CONTINUES AT REST IN THE BED, NO DISTRESS OR COMPLAINTS.
--- NOTE | 2021-02-26 20:45 | NUR ---
RESTING IN BED ON ROUNDS. AWAKE, ALERT AND ORIENTED. NO COMPLAINTS OF ANY PAIN OR DISCOMFORTS. RESP NON-LABORED. NO O2 IN USE. O2 SATS 95% PRODUCTIVE COUGH PERSISTS. OFFERED PATIENT COUGH SYRUP AND HE DECLINES. BREATH SOUNDS CLEAR, DIMINISHED THROUGHOUT LUNG VALERIO. RIGHT CHEST PORT PREVIOUSLY ACCESSED, NS INFUSING AT 100 ML/HR. INSERTION SITE BENIGN, DSG CDI. FINANCIAL COMPLIANCE OFFICER SHOWS SR WITH 1 ST DEGREE AVB. DISCUSSED PLAN OF CARE. DENIES NEEDS AT THIS TIME. CALL NIEVES IN REACH.
--- NOTE | 2021-02-26 22:00 | NUR ---
RESTING IN BED, WATCHING TV. NO COMPLAINTS VOICED. VSS. RESP NON-LABORED.
[2021-02-27] VITALS (12 sets, daily range): BP systolic 142–187; BP diastolic 71–96
--- NOTE | 2021-02-27 | NUR ---
RESTING WITH EYES CLOSED. RESP NON-LABORE. SR WITH 1 ST DEGREE AVB ON MONITOR.
--- NOTE | 2021-02-27 03:56 | NUR ---
NO CHANGES TO REPORT. IN NO APPARENT DISTRESS. NOT COUGHING MUCH EARLIER. VSS. NS INFUSING WITHOUT INCIDENT.
--- NOTE | 2021-02-27 05:20 | NUR ---
PATIENT AWAKENS TO NAME. BLOOD DRAWN FROM PORT FOR AM LABS. PORT FLUSHED PRE AND POST BLOOD DRAW PER HOSPITAL PROTOCOL.
[2021-02-27 05:57] LABS: HEMATOCRIT 38.4 % (39.0-50.0); HEMOGLOBIN 13.3 g/dl (14.0-18.0); MEAN CELL VOLUME 93.4 fL CALC (80.0-100.0); MEAN CORPUSCULAR HGB 32.4 pG CALC (26.0-32.0); MEAN CORPUSCULAR HGB CONC 34.6 g/dL CAL (32.0-36.0); RED BLOOD COUNT 4.11 mill/uL (4.70-6.10); RED CELL DISTRI WIDTH 13.3 % (11.5-15.5)
--- NOTE | 2021-02-27 06:00 | NUR ---
NO CHANGES TO REPORT. IN NOAPPARENT DISTRESS. VSS. SR WITH 1 ST DEGREE AVB.
[2021-02-27 06:09] LABS: CREATININE 1.5 mg/dL (0.7-1.3)
--- NOTE | 2021-02-27 07:45 | NUR ---
PATIENT IS A/O X3, DENIES PAIN AT THIS TIME. 3MM PERRLA. VITALS STABLE. CLEAR LUNG SOUNDS. NORMAL HEART SOUNDS. SOFT ABDOMEN. STRONG PULSES. NO EDEMA NOTED. SAFETY MEASURES IN PLACE. CALL LIGHT IN REACH. WILL CONTINUE TO MONITOR.
--- NOTE | 2021-02-27 08:00 | NUR ---
PATIENT IS SITTING UP IN BED EATING BREKFAST
--- NOTE | 2021-02-27 10:00 | NUR ---
SOSA TALKING ON HIS CELL PHONE
--- NOTE | 2021-02-27 12:23 | NUR ---
Physical Therapy Visit Patient seen and treated today. Patient identified by full name and date of . Physical Therapy Management 1. Supine and sit and sit to supine x 2 rounds. 2. Sit to stand and stand to sit x 2 repetitions. 3. Sitting balance/tolerance x 3-5 minutes. 4. Standing balance/tolerance x 3-5 minutes. 5. Marching in place x 10 repetitions. Patient was able to perform all exercises with minimal fatigue. Minimal unsteadiness observed while patient was attempting to sit and stand and maintaining standing position. Minimal fatigue observed throughout physical therapy session.
--- NOTE | 2021-02-27 12:58 | NUR ---
PATIENT REFUSED LUNCH, STATED "DIDN'T FEEL LIKE EATING IT". OTHER FOODS WERE OFFERED, DECLINED ALL. CURRENTLY SLEEPING.
--- NOTE | 2021-02-27 14:10 | NUR ---
PATIENT STATED THAT HE FELT LIKE HIS "THROAT WAS CLOSING UP, MY CHEST IS TIGHTENING UP". CALLED DR. FELTON/ NEW ORDER GIVEN.
--- NOTE | 2021-02-27 14:30 | NUR ---
PATIENT RECIEVED BENADRYL STATED THAT HE FEELS BETTER.
--- NOTE | 2021-02-27 16:22 | NUR ---
SPOKE TO PATIENT'S SISTER WU. CODE WAS PROVIDED. UPDATE WAS GIVEN REQUESTED
--- NOTE | 2021-02-27 18:38 | NUR ---
BP CONTINUES TO BE HIGH EVEN AFTER PRN HYDRALAZINE. GAVE HIM LABETALOL DUE TO BP BEING >180 PER ORDERS. HR WAS IN THE 70'S. PATIENT AGREED TO MEDICATION AFTER EDUCATION WAS PROVIDED ON MEDICATION.
--- NOTE | 2021-02-27 19:45 | NUR ---
PATIENT AWAKE, ALERT AND ORIENTED. PATIENT IS TEARY EYED THIS EVENING, STATES FEELING DOWN BECAUSE HE WANTED TO GO HOME TODAY. SUPPORT AND REASSURANCE PROVIDED. BREATH SOUNDS CLEAR, SLIGHTLY DIMINISHED THROUGHOUT. NO PERIPHERAL EDEMA, PULSES INTACT. RIGHT CHEST PORT PREVIOUSLY ACCESSED WITH NS INFUSING AT 100 ML/HR. LEGAL ADMINISTRATIVE SECRETARY SHOWS SR WITH 1 ST DEGREE AVB.
--- NOTE | 2021-02-27 19:53 | NUR ---
PATIENT C/O NAUSEA, MEDICATED WITH ZOFRAN 4 MG IVP ORDERED FOR NAUSEA.
--- NOTE | 2021-02-27 20:15 | NUR ---
PATIENT STATES NAUSEA HAS SUBSIDED. TYLENOL 650 MG PO GIVEN FOR C/O HEADACHE.
--- NOTE | 2021-02-27 21:00 | NUR ---
PATIENT BP RESPONDED WELL TO NORVAC GIVEN EARLIER. BP CURRENTLY 142/71.
--- NOTE | 2021-02-27 21:49 | NUR ---
SONATA 5 MG PO GIVEN FOR SLEEP. VSS. RESP NON-LABORED.
[2021-02-28] VITALS (8 sets, daily range): BP systolic 143–167; BP diastolic 66–84
--- NOTE | 2021-02-28 | NUR ---
VSS. RESP NON-LABORED. RESTING WITH EYES CLOSED. SR WITH 1 ST DEGREE AVB ON MONITOR.
--- NOTE | 2021-02-28 04:00 | NUR ---
PATIENT CONTINUES TO SLEEP SOUNDLY. VSS. NO CHANGES TO REPORT.
--- NOTE | 2021-02-28 05:00 | NUR ---
PATIENT AWAKENS TO NAME. BLOOD DRAWN FROM PORT FOR AM LABS. PORT FLUSHED PRE AND POST BLOOD DRAW PER PROTOCOL.
[2021-02-28 05:32] LABS: HEMOGLOBIN 13.5 g/dl (14.0-18.0); MEAN CELL VOLUME 93.3 fL CALC (80.0-100.0); MEAN CORPUSCULAR HGB 32.3 pG CALC (26.0-32.0); MEAN CORPUSCULAR HGB CONC 34.6 g/dL CAL (32.0-36.0); RED BLOOD COUNT 4.18 mill/uL (4.70-6.10); RED CELL DISTRI WIDTH 13.4 % (11.5-15.5)
[2021-02-28 05:58] LABS: CREATININE 1.5 mg/dL (0.7-1.3); POTASSIUM 3.8 mmol/l (3.5-5.1)
--- NOTE | 2021-02-28 06:00 | NUR ---
NO CHANGES TO REPORT. IN NO ACUTE DISTRESS. VSS.
[2021-02-28] MEDS ORDERED: LEVAQUIN750 M1 PO (08:25)
[2021-02-28] MEDS ORDERED: AMLODIPINE BESYL5 MG PO (08:28)
--- NOTE | 2021-02-28 11:45 | NUR ---
DISCHARGE INSTRUCTIONS PROVIDED AND RECIEVED WELL. ACCESS TO MEDIPORT REMOVED TRANSPORTED VIA WHEELCHAIR SAFELY TO VEHICLE.
== END 2021-02-28 11:45 | disposition home or self-care (01) | DRG 871 ==
LOC: ED 17:44 → ED-I 18:36 → ED 18:36 → ED-I 18:50 → ED 19:11 → ICU 19:12
PROVIDERS: Emergency Medicine; Nurse Practitioner Family; ADMIT Hospitalist; ATTEND Hospitalist
DX: A41.9 Sepsis, unspecified organism (principal); J18.9 Pneumonia, unspecified organism; E87.2 Acidosis; N17.9 Acute kidney failure, unspecified; N18.4 Chronic kidney disease, stage 4 (severe); C83.10 Mantle cell lymphoma, unspecified site; R65.20 Severe sepsis without septic shock; I12.9 Hypertensive chronic kidney disease with stage 1 through stage 4 chronic kidney disease, or unspecified chronic kidney disease; I25.10 Atherosclerotic heart disease of native coronary artery without angina pectoris; E78.5 Hyperlipidemia, unspecified; C14.0 Malignant neoplasm of pharynx, unspecified; E83.51 Hypocalcemia; E83.42 Hypomagnesemia; E87.6 Hypokalemia; E87.8 Other disorders of electrolyte and fluid balance, not elsewhere classified; I25.2 Old myocardial infarction; Z85.118 Personal history of other malignant neoplasm of bronchus and lung; Z79.899 Other long term (current) drug therapy; Z85.46 Personal history of malignant neoplasm of prostate; Z87.01 Personal history of pneumonia (recurrent); Z95.1 Presence of aortocoronary bypass graft; Z20.822 Contact with and (suspected) exposure to COVID-19
CPT/HCPCS: J0692; J1650; J3370

== ENCOUNTER 2021-03-19 17:44 | Observation (INO) | payer MEDICARE, MEDICAID ==
[~2021-03-19 17:44] MED LIST changes: +AMLODIPINE BESYL5 MG PO; +LEVAQUIN750 M1 PO
[2021-03-19 19:39] LABS: HEMATOCRIT 27.6 % (39.0-50.0); HEMOGLOBIN 9.5 g/dl (14.0-18.0); IMMATURE GRANULOCYTES 17.5 % (0.0-5.0); MEAN CELL VOLUME 95.2 fL CALC (80.0-100.0); MEAN CORPUSCULAR HGB 32.8 pG CALC (26.0-32.0); MEAN CORPUSCULAR HGB CONC 34.4 g/dL CAL (32.0-36.0); NEUT# 0.46 thou/uL (1.82-7.42); RED BLOOD COUNT 2.9 mill/uL (4.70-6.10); RED CELL DISTRI WIDTH 13.7 % (11.5-15.5)
[2021-03-19 20:07] LABS: ALBUMIN 3.5 g/dL (3.2-5.0); ALKALINE PHOSPHATASE 69 u/l (38-126); ANION GAP 11 (6-22 (CALC)); BILIRUBIN, TOTAL 0.8 mg/dL (0.0-1.4); BUN 21 mg/dL (8-23); BUN/CREATININE RATIO 12 (12-20 (CALC)); CARBON DIOXIDE 21 mmol/l (22-30); CHLORIDE 108 mmol/l (95-108); CREATININE 1.8 mg/dL (0.7-1.3); GFR 36 ML/MIN (>=60 (CALC)); GFR FOR AFR.AMER. 44 ML/MIN (>=60 (CALC)); POTASSIUM 3.7 mmol/l (3.5-5.1); SGOT/AST 33 u/l (19-48); SODIUM 136 mmol/l (137-146); TOTAL PROTEIN 6.4 g/dL (6.3-8.2)
[2021-03-20 06:41] LABS: C-REACTIVE PROTEIN 1.5 mg/dL (0-0.9); CREATININE 1.8 mg/dL (0.7-1.3); MAGNESIUM 1.9 mg/dL (1.6-2.3); POTASSIUM 4.3 mmol/l (3.5-5.1)
[2021-03-20 06:45] LABS: HEMATOCRIT 42.6 % (39.0-50.0); HEMOGLOBIN 14.7 g/dl (14.0-18.0); MEAN CORPUSCULAR HGB 32.1 pG CALC (26.0-32.0); MEAN CORPUSCULAR HGB CONC 34.5 g/dL CAL (32.0-36.0); RED BLOOD COUNT 4.58 mill/uL (4.70-6.10); RED CELL DISTRI WIDTH 13.4 % (11.5-15.5)
[2021-03-20 06:47] LABS: CHOLESTEROL HDL RATIO 4.6 (<4.4 (CALC))
[2021-03-20 12:09] VITALS: BP 137/82
[2021-03-20] MEDS ORDERED: LEVAQUIN750 M1 PO (13:01)
[2021-03-20] MEDS ORDERED: DOXYCYCL HYC100 MG PO (13:04)
== END 2021-03-20 12:04 | disposition home or self-care (01) ==
LOC: ED 17:44 → ED-I 20:15 → ED 20:23 → ED-I 20:24
PROVIDERS: Family Medicine; Nurse Practitioner; ADMIT Internal Medicine; ATTEND Internal Medicine
DX: U07.1 COVID-19 (principal); D72.819 Decreased white blood cell count, unspecified; I12.9 Hypertensive chronic kidney disease with stage 1 through stage 4 chronic kidney disease, or unspecified chronic kidney disease; N18.30 Chronic kidney disease, stage 3 unspecified; I25.10 Atherosclerotic heart disease of native coronary artery without angina pectoris; C14.0 Malignant neoplasm of pharynx, unspecified; C83.10 Mantle cell lymphoma, unspecified site; E78.5 Hyperlipidemia, unspecified; N40.0 Benign prostatic hyperplasia without lower urinary tract symptoms; I25.2 Old myocardial infarction; Z95.1 Presence of aortocoronary bypass graft; Z79.899 Other long term (current) drug therapy; Z85.46 Personal history of malignant neoplasm of prostate; Z92.3 Personal history of irradiation

== ENCOUNTER 2021-03-24 10:18 | Inpatient (IN) | payer MEDICARE, MEDICAID ==
[~2021-03-24] VITALS: Ht 195.6 cm; Wt 90.0 kg
[2021-03-24 10:50] VITALS: BP 153/84
[2021-03-24 11:16] LABS: HEMATOCRIT 41.9 % (39.0-50.0); HEMOGLOBIN 14.6 g/dl (14.0-18.0); IMMATURE GRANULOCYTES 1.5 % (0.0-5.0); MEAN CELL VOLUME 91.3 fL CALC (80.0-100.0); MEAN CORPUSCULAR HGB 31.8 pG CALC (26.0-32.0); MEAN CORPUSCULAR HGB CONC 34.8 g/dL CAL (32.0-36.0); NEUT# 0.85 thou/uL (1.82-7.42); RED BLOOD COUNT 4.59 mill/uL (4.70-6.10); RED CELL DISTRI WIDTH 13.4 % (11.5-15.5)
[2021-03-24 11:31] LABS: ALBUMIN 3.9 g/dL (3.2-5.0); CREATININE 1.8 mg/dL (0.7-1.3); POTASSIUM 4.1 mmol/l (3.5-5.1); TOTAL PROTEIN 7.1 g/dL (6.3-8.2)
[2021-03-25 04:00] VITALS: BP 119/81
[2021-03-25 06:00] LABS: HEMATOCRIT 43.9 % (39.0-50.0); HEMOGLOBIN 15.3 g/dl (14.0-18.0); MEAN CELL VOLUME 91.3 fL CALC (80.0-100.0); MEAN CORPUSCULAR HGB 31.8 pG CALC (26.0-32.0); MEAN CORPUSCULAR HGB CONC 34.9 g/dL CAL (32.0-36.0); NEUT# 0.62 thou/uL (1.82-7.42); RED BLOOD COUNT 4.81 mill/uL (4.70-6.10); RED CELL DISTRI WIDTH 13.5 % (11.5-15.5)
[2021-03-25 06:05] LABS: ALBUMIN 3.4 g/dL (3.2-5.0); BILIRUBIN, TOTAL 0.9 mg/dL (0.0-1.4); C-REACTIVE PROTEIN 6.5 mg/dL (0-0.9); CREATININE 1.7 mg/dL (0.7-1.3); POTASSIUM 4.5 mmol/l (3.5-5.1); TOTAL PROTEIN 6.1 g/dL (6.3-8.2)
[2021-03-25 08:01] VITALS: BP 138/86
[2021-03-25 11:07] VITALS: BP 119/79
[2021-03-25 12:57] LABS: URINE BILIRUBIN - DIPSTICK NEGATIVE (NEGATIVE); URINE BLOOD DIPSTICK NEGATIVE (NEGATIVE); URINE COLOR YELLOW; URINE GLUCOSE - DIPSTICK NEGATIVE (NEGATIVE); URINE KETONE NEGATIVE (NEGATIVE); URINE LEUK ESTERASE NEGATIVE (NEGATIVE); URINE PH 5.5 (4.5-8.0); URINE PROTEIN - DIPSTICK 30 mg/dL (NEG-TRACE); URINE SPECIFIC GRAVITY >=1.030; URINE UROBILINOGEN - DIPSTICK 0.2 E.U./dL (0.2)
[2021-03-25 12:58] LABS: URINE NITRITE - DIPSTICK NEGATIVE (Negative)
[2021-03-25 13:10] LABS: URINE COARSE GRANULAR CAST FEW lpf; URINE SQUAMOUS EPITHELIAL CELL FEW EPI/hpf (0-FEW); URINE WBC 0-2 WBC/hpf (0-5)
[2021-03-25 16:26] VITALS: BP 130/72
[2021-03-25 20:19] VITALS: BP 125/71
[2021-03-26 00:45] VITALS: BP 127/71
[2021-03-26 05:07] VITALS: BP 144/71
[2021-03-26 05:38] LABS: ALBUMIN 2.9 g/dL (3.2-5.0); BILIRUBIN, TOTAL 0.6 mg/dL (0.0-1.4); CREATININE 1.6 mg/dL (0.7-1.3); POTASSIUM 4.5 mmol/l (3.5-5.1); TOTAL PROTEIN 5.4 g/dL (6.3-8.2)
[2021-03-26 05:53] LABS: HEMOGLOBIN 12.9 g/dl (14.0-18.0); RED BLOOD COUNT 4.04 mill/uL (4.70-6.10)
[2021-03-26 05:54] LABS: HEMATOCRIT 37.6 % (39.0-50.0); MEAN CELL VOLUME 93.1 fL CALC (80.0-100.0); MEAN CORPUSCULAR HGB 31.9 pG CALC (26.0-32.0); MEAN CORPUSCULAR HGB CONC 34.3 g/dL CAL (32.0-36.0); RED CELL DISTRI WIDTH 13.6 % (11.5-15.5)
[2021-03-26 05:55] LABS: IMMATURE GRANULOCYTES 6.1 % (0.0-5.0); NEUT# 0.8 thou/uL (1.82-7.42)
[2021-03-26 07:25] VITALS: BP 140/71
[2021-03-26 10:20] VITALS: BP 142/76
[2021-03-26 15:10] VITALS: BP 135/76
[2021-03-26 19:00] VITALS: BP 125/68
[2021-03-27] VITALS: BP 131/66
[2021-03-27 04:00] VITALS: BP 140/71
[2021-03-27 05:55] LABS: ALBUMIN 2.8 g/dL (3.2-5.0); ALKALINE PHOSPHATASE 70 u/l (38-126); ANION GAP 10 (6-22 (CALC)); BILIRUBIN, TOTAL 0.8 mg/dL (0.0-1.4); BUN 33 mg/dL (8-23); BUN/CREATININE RATIO 26 (12-20 (CALC)); C-REACTIVE PROTEIN 2.4 mg/dL (0-0.9); CARBON DIOXIDE 22 mmol/l (22-30); CHLORIDE 111 mmol/l (95-108); CREATININE 1.3 mg/dL (0.7-1.3); GFR 53 ML/MIN (>=60 (CALC)); GFR FOR AFR.AMER. > 60 ML/MIN (>=60 (CALC)); POTASSIUM 4.3 mmol/l (3.5-5.1); SODIUM 139 mmol/l (137-146); TOTAL PROTEIN 5.3 g/dL (6.3-8.2)
[2021-03-27 05:58] LABS: HEMATOCRIT 36.8 % (39.0-50.0); HEMOGLOBIN 12.6 g/dl (14.0-18.0); IMMATURE GRANULOCYTES 19.9 % (0.0-5.0); MEAN CELL VOLUME 93.4 fL CALC (80.0-100.0); MEAN CORPUSCULAR HGB CONC 34.2 g/dL CAL (32.0-36.0); NEUT# 0.69 thou/uL (1.82-7.42); RED BLOOD COUNT 3.94 mill/uL (4.70-6.10); RED CELL DISTRI WIDTH 13.5 % (11.5-15.5)
[2021-03-27 06:06] LABS: SGOT/AST 74 u/l (19-48)
[2021-03-27 07:30] VITALS: BP 142/70
[2021-03-27 12:16] VITALS: BP 145/78
[2021-03-27 17:27] VITALS: BP 124/73
[2021-03-27 20:00] VITALS: BP 145/75
[2021-03-28] VITALS (7 sets, daily range): BP systolic 144–161; BP diastolic 73–83
[2021-03-28 08:14] LABS: HEMATOCRIT 38.1 % (39.0-50.0); HEMOGLOBIN 12.9 g/dl (14.0-18.0); MEAN CELL VOLUME 92.9 fL CALC (80.0-100.0); MEAN CORPUSCULAR HGB 31.5 pG CALC (26.0-32.0); MEAN CORPUSCULAR HGB CONC 33.9 g/dL CAL (32.0-36.0); NEUT# 0.89 thou/uL (1.82-7.42); RED BLOOD COUNT 4.1 mill/uL (4.70-6.10); RED CELL DISTRI WIDTH 13.5 % (11.5-15.5)
[2021-03-28 08:25] LABS: ALBUMIN 2.8 g/dL (3.2-5.0); ALKALINE PHOSPHATASE 81 u/l (38-126); ANION GAP 10 (6-22 (CALC)); BUN 27 mg/dL (8-23); BUN/CREATININE RATIO 23 (12-20 (CALC)); CARBON DIOXIDE 20 mmol/l (22-30); CHLORIDE 111 mmol/l (95-108); CREATININE 1.2 mg/dL (0.7-1.3); GFR 58 ML/MIN (>=60 (CALC)); GFR FOR AFR.AMER. > 60 ML/MIN (>=60 (CALC)); SGOT/AST 51 u/l (19-48); SODIUM 137 mmol/l (137-146); TOTAL PROTEIN 5.3 g/dL (6.3-8.2)
[2021-03-28 08:26] LABS: IMMATURE GRANULOCYTES 13.7 % (0.0-5.0)
[2021-03-29 04:06] VITALS: BP 169/84
[2021-03-29 06:54] LABS: HEMATOCRIT 38.2 % (39.0-50.0); HEMOGLOBIN 13.1 g/dl (14.0-18.0); MEAN CORPUSCULAR HGB 31.6 pG CALC (26.0-32.0); MEAN CORPUSCULAR HGB CONC 34.3 g/dL CAL (32.0-36.0); NEUT# 1.12 thou/uL (1.82-7.42); RED BLOOD COUNT 4.15 mill/uL (4.70-6.10); RED CELL DISTRI WIDTH 13.2 % (11.5-15.5)
[2021-03-29 06:58] LABS: IMMATURE GRANULOCYTES 13.1 % (0.0-5.0)
[2021-03-29 07:06] LABS: ALBUMIN 2.9 g/dL (3.2-5.0); ALKALINE PHOSPHATASE 81 u/l (38-126); ANION GAP 11 (6-22 (CALC)); BILIRUBIN, TOTAL 1.1 mg/dL (0.0-1.4); BUN 23 mg/dL (8-23); BUN/CREATININE RATIO 20 (12-20 (CALC)); CARBON DIOXIDE 21 mmol/l (22-30); CHLORIDE 110 mmol/l (95-108); CREATININE 1.2 mg/dL (0.7-1.3); GFR 58 ML/MIN (>=60 (CALC)); GFR FOR AFR.AMER. > 60 ML/MIN (>=60 (CALC)); POTASSIUM 4.1 mmol/l (3.5-5.1); SGOT/AST 33 u/l (19-48); SODIUM 138 mmol/l (137-146); TOTAL PROTEIN 5.2 g/dL (6.3-8.2)
[2021-03-29 07:24] LABS: C-REACTIVE PROTEIN 13.4 mg/dL (0-0.9)
[2021-03-29 08:40] VITALS: BP 175/77
[2021-03-29 09:30] VITALS: BP 178/87
[2021-03-29 10:35] VITALS: BP 170/87
[2021-03-29 12:40] VITALS: BP 170/87
== END 2021-03-29 12:50 | disposition left against medical advice (07) | DRG 177 ==
LOC: ED 10:18 → ED-I 11:19 → ED 13:19 → ED-I 13:20 → MS2 13:20
PROVIDERS: Emergency Medicine; Nurse Practitioner; ADMIT Hospitalist; ATTEND Hospitalist
PROC: XW033E5 Introduction of Remdesivir Anti-infective into Peripheral Vein, Percutaneous Approach, New Technology Group 5 (ICD-10-PCS; principal; 2021-03-24)
DX: U07.1 COVID-19 (principal); J12.82 Pneumonia due to coronavirus disease 2019; J96.01 Acute respiratory failure with hypoxia; C83.10 Mantle cell lymphoma, unspecified site; D84.821 Immunodeficiency due to drugs; R04.2 Hemoptysis; I12.9 Hypertensive chronic kidney disease with stage 1 through stage 4 chronic kidney disease, or unspecified chronic kidney disease; N18.30 Chronic kidney disease, stage 3 unspecified; C14.0 Malignant neoplasm of pharynx, unspecified; I25.10 Atherosclerotic heart disease of native coronary artery without angina pectoris; N40.0 Benign prostatic hyperplasia without lower urinary tract symptoms; E78.5 Hyperlipidemia, unspecified; D70.2 Other drug-induced agranulocytosis; D64.9 Anemia, unspecified; I25.2 Old myocardial infarction; T45.1X5A Adverse effect of antineoplastic and immunosuppressive drugs, initial encounter; Z85.46 Personal history of malignant neoplasm of prostate; Z95.1 Presence of aortocoronary bypass graft; Z92.3 Personal history of irradiation; Z86.010 Personal history of colon polyps; Z79.899 Other long term (current) drug therapy; Z87.01 Personal history of pneumonia (recurrent); Z95.828 Presence of other vascular implants and grafts

== ENCOUNTER 2021-03-31 11:08 | Inpatient (IN) | payer MEDICARE, MEDICAID ==
[~2021-03-31] VITALS: Ht 195.6 cm; Wt 79.0 kg
--- NOTE | 2021-03-31 11:08 | NUR ---
PT IMMEDIATELY TO RM 9 VIA EMS STRETCHER FOR B/S TRIAGE.
[2021-03-31 12:00] LABS: INTERNATIONAL NORMALIZED RATIO 1.2 RATIO (0.7-1.3); PROTHROMBIN TIME 12.1 SECONDS (9.0-12.5)
[2021-03-31 12:02] LABS: HEMATOCRIT 37.1 % (39.0-50.0); HEMOGLOBIN 12.9 g/dl (14.0-18.0); MEAN CELL VOLUME 91.4 fL CALC (80.0-100.0); MEAN CORPUSCULAR HGB 31.8 pG CALC (26.0-32.0); MEAN CORPUSCULAR HGB CONC 34.8 g/dL CAL (32.0-36.0); NEUT# 2.25 thou/uL (1.82-7.42); RED BLOOD COUNT 4.06 mill/uL (4.70-6.10); RED CELL DISTRI WIDTH 13.5 % (11.5-15.5)
[2021-03-31 12:04] LABS: BILIRUBIN, TOTAL 1.2 mg/dL (0.0-1.4); CREATININE 1.4 mg/dL (0.7-1.3); MAGNESIUM 1.8 mg/dL (1.6-2.3); POTASSIUM 3.3 mmol/l (3.5-5.1); TOTAL PROTEIN 5.7 g/dL (6.3-8.2)
[2021-03-31 12:08] LABS: IMMATURE GRANULOCYTES 23.6 % (0.0-5.0)
--- NOTE | 2021-03-31 14:28 | NUR ---
Reassessment of patient completed. No distress noted.
[2021-03-31] MEDS ORDERED: NORVASC5 M1 PO (15:48)
--- NOTE | 2021-03-31 15:48 | NUR ---
PATIENT FEELS SOB, DR HERNADEZ NOTIFIED AND Rt CALLED. PATIENT POSSIBLY TO BE PLACED ON BiPAP
--- NOTE | 2021-03-31 17:18 | NUR ---
REPORT CALLED TO ROSARIO MILTON, ON ICU. ON BIPAP. VSS. IV SITES HEALTHY. ADVISED OF ALL MEDS, ATTACHMENTS, MEDS.
--- NOTE | 2021-03-31 18:34 | NUR ---
PT ARRIVES TO ROOM 7 IN ICU, ALERT AND ORIENTED X 3. LUNGS SLIGHTLY COARSE, PT ON BIPAP. ADMISSION ASSESSMENT COMPLETED WITHOUT DIFFICULTY. PT STABLE.
[2021-03-31 20:00] VITALS: BP 171/87
--- NOTE | 2021-03-31 20:00 | NUR ---
RESTING IN BED ON ROUNDS. RESP SLT LABORED, MICHAEL ON EXERTION. ON HIGH FLOW O2 AT 14 L. O2 SAT 93% BREATH SOUNDS COARSE IN UPPER LOBES, DIMINISHED IN BILATERAL BASES. RIGHT CHEST PORT PREVIOUSLY ACCESSED WITH NS INFUSING AT KVO. SHIFT ASSESSMENT COMPLETED. WATER CHEMIST SOWS SR WITH BBB. DISCUSSED PLAN OF CARE. TYLENOL 650 MG PO GIVEN FOR C/O GENERALIZED ACHES. CALL NIEVES IN REACH.
[2021-03-31 21:00] VITALS: BP 147/73
[2021-03-31 22:00] VITALS: BP 143/76
--- NOTE | 2021-03-31 22:00 | NUR ---
VSS. RESP NON-LABORED AT REST. SR WITH BBB ON MONITOR.
--- NOTE | 2021-03-31 22:45 | NUR ---
XANAX 0.25 MG PO GIVEN ORDERED FOR RESTLESSNESS PER PATIENT REQUEST.
[2021-03-31 23:00] VITALS: BP 161/87
[2021-04-01] VITALS (15 sets, daily range): BP systolic 111–192; BP diastolic 57–99
--- NOTE | 2021-04-01 00:15 | NUR ---
BLOOD DRAWN FROM RIGHT CHEST PORT FOR TROPONIN LEVEL. PORT FLUSHED PRE AND POST LAB DRAW PER PROTOCOL.
--- NOTE | 2021-04-01 00:20 | NUR ---
PATIENT REQUESTS ANOTHER DOSE OF TYLENOL AND ROBITUSSIN. ADVISED PATIENT NOT TIME YET FOR MEDS. PATIENT VERBALIZES UNDERSTANDING C/O UPSET STOMACH. ZOFRAN 4 MG IVP GIVEN ORDERED. PATIENT VERY ANXIOUS. HR 120'S. BP ELEVATED. ENCOURAGED TO RELAX, SUPPORT AND REASSURANCE PROVIDED. O2 SAT LOW 80'S. RESP CALLED TO PLACE PATIENT BACK ON BIPAP WHICH PATIENT REFUSED. WILL MONITOR CLOSELY.
--- NOTE | 2021-04-01 01:00 | NUR ---
PATIENT IS RESTING WITH EYES CLOSED. RESP SLT LABORED. O2 SAT UPPER 80'S ON HIGH FLOW CANNULA AT 14 L.
--- NOTE | 2021-04-01 01:30 | NUR ---
CONTINUES TO REST WITH EYES CLSOED. RESP SLT LABORED. RR 34. O2 SAT 95% MONITOR SR -ST HR 90'S-105. WILL CONTINUE TO MONITOR CLOSELY.
--- NOTE | 2021-04-01 02:45 | NUR ---
TYLENOL 650 MG PO GIVEN FOR C/O GENERALIZED ACHES, AND ROBITUSSIN GIVEN FOR COUGH ORDERED.
--- NOTE | 2021-04-01 04:00 | NUR ---
RESTING WITH EYES CLOSED. VSS. SR-ST ON MONITOR WITH BBB.
--- NOTE | 2021-04-01 06:15 | NUR ---
PATIENT VERY ANXIOUS WHEN AWAKE. MEDICATED WITH XANAX ORDERED FOR ANXIETY. BLOOD DRAWN FOR AM LABS ORDERED. VSS.
[2021-04-01 07:05] LABS: HEMATOCRIT 37.4 % (39.0-50.0); HEMOGLOBIN 12.6 g/dl (14.0-18.0); MEAN CORPUSCULAR HGB 31.3 pG CALC (26.0-32.0); MEAN CORPUSCULAR HGB CONC 33.7 g/dL CAL (32.0-36.0); NEUT# 2.21 thou/uL (1.82-7.42); RED BLOOD COUNT 4.02 mill/uL (4.70-6.10); RED CELL DISTRI WIDTH 13.7 % (11.5-15.5)
--- NOTE | 2021-04-01 07:08 | NUR ---
S: LIN NERI is a 80 M who presents with pneumonia due to COVID-19 virus. He has a history of HTN, BPH, prostate cancer, CAD, OR, arthritis, dyslipidemia, mantle cell lymphoma, CKD stage 3, and vocal cord paralysis. All medications in patient's chart were reviewed. O: VS: BP 155/78 mmHg, P 96 bpm, RR 80 breath/min, T 98.3 F W 79 kg, HT 77 in, Scr= 1.5 mg/dL, CrCl= 43 ml/min A: Blood culture is pending. P: Patient is on Zosyn 4.5g IV Q6H. Vancomycin ordered for pharmacy to dose. Start Vancomycin 1g IV Q24H. Vancomycin trough is drawn before the 4th dose on 04/03/21 at 1430. Vancomycin goal trough is between 15-20 mcg/ml. Pharmacy will follow and or advise on antibiotics use as needed.
[2021-04-01 07:10] LABS: IMMATURE GRANULOCYTES 16.2 % (0.0-5.0)
--- NOTE | 2021-04-01 07:30 | NUR ---
PT SLEEPING IN BED, AWAKENED TO COMPLETE ASSESSMENT. A&O. NO DISTRESS NOTED. PT REPORTS TO BE FEELING "BETTER THIS MORNING". O2 VIA NC @14L HIGHFLOW IN PLACE CURRENTLY SUSTAINING 91-93%. CLEAR/DIMINISHED BREATH SOUNDS UPON AUSCULTATION. ACTIVE BOWEL SOUNDS X4 QUADRANTS. NO PAIN OR NEEDS REPORTED AT THIS TIME. PT CURRENTLY AFEBRILE. ASSESSMENT COMPLETED. DISCUSSED POC. CALL LIGHT WITHIN REACH. ISOLATION PRECAUTIONS IN PLACE, PT EDUCATED ON THE NEED FOR THESE PRECAUTIONS, VERBALIZED UNDERSTANDING.
[2021-04-01 07:50] LABS: ALBUMIN 2.6 g/dL (3.2-5.0); BILIRUBIN, TOTAL 1.2 mg/dL (0.0-1.4); CREATININE 1.4 mg/dL (0.7-1.3); TOTAL PROTEIN 4.9 g/dL (6.3-8.2)
[2021-04-01 08:12] LABS: POTASSIUM 4.2 mmol/l (3.5-5.1)
[2021-04-01 08:13] LABS: C-REACTIVE PROTEIN 23.2 mg/dL (0-0.9)
--- NOTE | 2021-04-01 08:31 | NUR ---
DR GREGORIO AT BEDSIDE DISCUSSING POC
--- NOTE | 2021-04-01 08:47 | NUR ---
GE CUI AT BEDSIDE OBTAINING EKG AND INITIATING VAPOTHERM AT THIS TIME
--- NOTE | 2021-04-01 09:25 | NUR ---
VAPOTHERM PLACED 40L, 100%. CURRENTLY SUSTAINING 96%. ORDERS PLACED FOR Q4 TROPONIN, PER VERBAL ORDER BY DR GREGORIO.
--- NOTE | 2021-04-01 09:44 | NUR ---
URINE SAMPLE COLLECTED, AND LABELED WITH DATE, TIME AND THIS NUT AND BOLT ASSEMBLER'S INITIALS.
--- NOTE | 2021-04-01 10:00 | NUR ---
TROPONIN SAMPLE OBTAINED, LABELED, DATE AND TIME. PORT FLUSHED PER PROTOCOL WITH HEPARIN AND SALINE FLUSH. PT TOLERATED WELL. CALL LIGHT WITHIN REACH. O2 SUTAINING 95%.
[2021-04-01 10:12] LABS: URINE BILIRUBIN - DIPSTICK NEGATIVE (NEGATIVE); URINE BLOOD DIPSTICK SMALL (NEGATIVE); URINE COLOR YELLOW; URINE GLUCOSE - DIPSTICK NEGATIVE (NEGATIVE); URINE KETONE TRACE mg/dL (NEGATIVE); URINE LEUK ESTERASE NEGATIVE (NEGATIVE); URINE PH 5.5 (4.5-8.0); URINE PROTEIN - DIPSTICK TRACE mg/dL (NEG-TRACE); URINE SPECIFIC GRAVITY 1.025; URINE UROBILINOGEN - DIPSTICK 0.2 E.U./dL (0.2)
[2021-04-01 10:14] LABS: URINE NITRITE - DIPSTICK NEGATIVE (Negative)
[2021-04-01 10:28] LABS: URINE AMORPH SEDIMENT FEW hpf (NONE-FER); URINE RENAL EPITHELIAL CELLS FEW hpf
[2021-04-01 10:29] LABS: URINE URIC ACID CRYSTALS MODERATE lpf
--- NOTE | 2021-04-01 11:10 | NUR ---
DR GREGORIO NOTIFIED OF CRITICAL TROPONIN WITH THE RESULT OF 0.140. PER DR GREGORIO D/C OTHER TROPONIN ORDERS UNLESS PT IS EXPERIENCING CP.
--- NOTE | 2021-04-01 11:11 | NUR ---
REPORT REC FROM GAURAV PONCE
--- NOTE | 2021-04-01 12:00 | NUR ---
PT SLEEPING IN BED. VAPOTHERM IN PLACE CURRENTLY SUSTAINING 97%. NO DISTRESS NOTED. CALL LIGHT WITHIN REACH.
--- NOTE | 2021-04-01 16:00 | NUR ---
PT SLEEPING IN BED. NO DISTRESS NOTED. CALL LIGHT WITHIN REACH.
--- NOTE | 2021-04-01 18:05 | NUR ---
PT ENCOURAGED TO EAT DINNER, APPETITIE WAS VERY LOW THIS MORNING. PT ATTEMPTING TO EAT DINNER. BLADDER SCAN PREFORMED AT THIS TIME. 648ML OF URINE AFTER SCAN, PT DENIES THE NEED TO VOID AT THIS TIME. DR GREGORIO NOTIFIED.
--- NOTE | 2021-04-01 18:20 | NUR ---
PT EDUCATED ON THE POSSIBLE NEED FOR CALDERON CATHETER INSERTION. PT ATTEMPTING TO USE URINAL .
--- NOTE | 2021-04-01 18:29 | NUR ---
PT SUCCESSFULLY URINATED INTO URINAL. 400 CC OF URINE.
--- NOTE | 2021-04-01 19:20 | NUR ---
PT SLEEPING IN BED. NO DISTRESS NOTED. VAPOTHERM IN PLACE SUSTAINING 97%. CALL LIGHT WITHIN REACH.
--- NOTE | 2021-04-01 19:55 | NUR ---
PATIENT IS AWAKE, DROWSY, ORIENTED X4. ON VAPOTHERM 40 L/MIN AND FIO2 OF 100%. LAYS IN HIGH CAGLE'S. VOICE IS SOFT/WEAK. SR ON TELE, HR 70'S, SPO2 IS 96%. NURSE ASSESSMENT PERFORMED. SKIN IS INTACT/DRY/WARM. NO EDEMA NOTED. RAC IV REMOVED DUE TO PAINFUL WHEN FLUSHING, R-CHEST PORT INTACT, FLUSHES, RETURNS BLOOD. EXPLAINED POC, EXPLAINED O2 SUPPORT. EDUACTED ON SAFETY PRECAUTIONS, BED ALARM ON AND CALL LIGHT WITHIN REACH. TOLERATES LOVENOX INJECTION, ACCEPTS ROBITUSSIN FOR COUGH. DENIES CHEST PAIN OR ANY OTHER TYPE OF PAIN. NS INFUSING PROPERLY THROUGH R-CHEST PORT. DID EXPLAIN WE WILL BE MONITORING FOR AMOUNT OF VOIDING THROUGH THE NIGHT SINCE HE WAS BLADDER SCANNED ON DAYSHIFT FOR RETENTION. WILL CONTINUE TO MONITOR.
[2021-04-02] VITALS (14 sets, daily range): BP systolic 139–181; BP diastolic 68–89
--- NOTE | 2021-04-02 00:10 | NUR ---
PATIENT LAYS ON HIS LEFT SIDE, HOB IN CAGLE'S POSITION, SPO2 97%. RESTS WITH EYES CLSOED. NO ACUTE DISTRESS SHOWN. WILL CONTINUE TO MONITOR.
--- NOTE | 2021-04-02 04:45 | NUR ---
TYLENOL AND ZOFRAN PROVIDED FOR COMPLAINTS OF STOMACH DISCOMFORT/PAIN. PATIENT IN RESPIRATORY DISTRESS, SPO2 93%. ABLE TO PULL HIMSELF UP. NO TENDERNESS NOTED TO PELVIC AREA INDICATING URINE RETENTION. CALL LIGHT WITHIN REACH.
--- NOTE | 2021-04-02 05:00 | NUR ---
BLOOD DRAWN FROM R-CHEST PORT.
[2021-04-02 05:19] LABS: HEMATOCRIT 36.3 % (39.0-50.0); HEMOGLOBIN 12.4 g/dl (14.0-18.0); MEAN CELL VOLUME 93.6 fL CALC (80.0-100.0); MEAN CORPUSCULAR HGB CONC 34.2 g/dL CAL (32.0-36.0); NEUT# 2.25 thou/uL (1.82-7.42); RED BLOOD COUNT 3.88 mill/uL (4.70-6.10); RED CELL DISTRI WIDTH 13.9 % (11.5-15.5)
[2021-04-02 05:25] LABS: IMMATURE GRANULOCYTES 16.7 % (0.0-5.0)
[2021-04-02 05:34] LABS: ANION GAP 8 (6-22 (CALC)); BUN 22 mg/dL (8-23); BUN/CREATININE RATIO 18 (12-20 (CALC)); CARBON DIOXIDE 23 mmol/l (22-30); CHLORIDE 108 mmol/l (95-108); CREATININE 1.3 mg/dL (0.7-1.3); GFR 53 ML/MIN (>=60 (CALC)); GFR FOR AFR.AMER. > 60 ML/MIN (>=60 (CALC)); POTASSIUM 4.1 mmol/l (3.5-5.1); SODIUM 134 mmol/l (137-146)
--- NOTE | 2021-04-02 06:14 | NUR ---
PATIENT RESTS WITH EYES CLOSED. NO ACUTE DISTRESS SHOWN. SPO2 98%. CALL LIGHT WITHIN REACH.
--- NOTE | 2021-04-02 06:44 | NUR ---
PT RECIEVED ON ALL DOCUMENTED PARAMTERS. NO ACUTE DISTRESS NOTED AT THIS TIME. BARKEEP TO MONITOR.
--- NOTE | 2021-04-02 06:45 | NUR ---
REPORT RECEIVED FROM VIDA PONCE. CARE ASSUMED.
--- NOTE | 2021-04-02 07:40 | NUR ---
PATIENT RESTING IN BED AT THIS TIME ON VAPOTHERM 40L 100%. PT IS ALERT AND ORIENTED X3. SHIFT ASSESSMENT COMPPLETED AT THIS TIME. CALL LIGHT IN REACH. WILL CONTINUE TO MONITOR.
--- NOTE | 2021-04-02 08:45 | NUR ---
DR GREGORIO AT BEDSIDE AT THIS TIME. PLAN OF CARE DISCUSSED. PATIENT WANTS TO BE A DNR AT THIS TIME. FAMILY PHONED.
--- NOTE | 2021-04-02 10:11 | NUR ---
PATIENT RESTING IN BED AT THIS TIME. REMAINS ON VAPOTHERM 40L 100%. VSS ON MONITOR. WILL CONTINUE TOMONITOR.
--- NOTE | 2021-04-02 12:00 | NUR ---
PATIENT SET UP FOR NOON MEAL AT THIS TIME. PATIENT TEARFUL AND UPSET. PATIENT PROVIDED ENCOURAGEMENT AND REASSURANCE. VSS ONMONTIOR. WILL CONTINUE TO MONITOR.
--- NOTE | 2021-04-02 12:29 | NUR ---
WEANED PARAMTERS PER PT TOLERANCE. ACIDIZER WATER WELL TO MONITOR.
--- NOTE | 2021-04-02 13:43 | NUR ---
PATIENT SITTING UP IN BED WATCHING TV. RESP ARE EVEN AND UNLABORED. VSS ON MONITOR. CALL LIGHT IN REACH. WILL CONTINUE TO MONITOR.
--- NOTE | 2021-04-02 17:47 | NUR ---
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 STATES HE JUST WANTS TO GO.
--- NOTE | 2021-04-02 17:49 | NUR ---
PT SLEEPING. NAD. VSS.
--- NOTE | 2021-04-02 20:15 | NUR ---
PATIENT AWAKE ON ROUNDS, ANXIOUS AND TEARFUL. EMOTIONAL SUPPORT AND REASSURANCE PROVIDED. PATIENT REQUEST SOMETHING FOR NERVES. MEDICATED WITH XANAX 0.25 MG PO ORDERED. ON VAPOTHERM 35 L/100% O2 SAT IN THE UPPER 70'S. LITERS INCREASED TO 40 L. O2 SAT GRADUALLY INCREASED TO UPPER 80'S. BREATH SOUNDS SLT COARSE/DIMINISHED THROUGHOUT. DRY COUGH NOTED. RIGHT CHEST PORT PREVIOUSLY ACCESSED WITH NS INFUSING AT 50 ML/HR. INVENTORY ACCOUNTANT SHOWS SR-ST WITH LBBB. DISCUSSED PLAN OF CARE. EMOTIONAL SUPPORT AND REASSURANCE PROVIDED. CALL NIEVES IN REACH.
--- NOTE | 2021-04-02 21:00 | NUR ---
RESTING QUIETLY WITH EYES CLOSED SINCE MEDICATED FOR ANXIETY EARLIER. O2 SAT 86% WILL CONTINUE TO MONITOR CLOSELY.
--- NOTE | 2021-04-02 23:15 | NUR ---
MEDICATED WITH LION AC FOR C/O COUGH.
[2021-04-03] VITALS (19 sets, daily range): BP systolic 134–192; BP diastolic 62–120
--- NOTE | 2021-04-03 00:10 | NUR ---
RESTING WITH EYES CLSOED. RESP SLT LABORED. ON VAPOTHERM-O2 SAT UPPER 80'S. SR ON MONITOR, HR IN THE 90'S.
--- NOTE | 2021-04-03 00:23 | NUR ---
RECEIVED A CALL FROM JOEL PETERSON SHE STATES SHE IS PATIENTS DAUGHTER, SHE WAS UNABLE TO PROVIDE PASSWORD. PATIENT IS ASLEEP SO UNABLE TO VERIFY WWITH HIM IF OK TO GIVE INFORMATION ON HIS CONDITION TO HER. PATIENT STATES "I DON'T HAVE NO PASSWORD. MY PIECE OF SHIT FAMILY WON"T TELL ME ANYTHING." ADVISED CALLER THAT WHEN PATIENT AWAKE WE WOULD CHECK WITH HIM IF OK TO GIVE INFO OR HE CAN CALL HER FROM HIS CELL PHONE.
--- NOTE | 2021-04-03 02:00 | NUR ---
RESTING WITH EYES CLOSED. REMAINS ON VAPOTHERM O2 SATS 80'S. DESATS EASILY WITH ANY ACTIVITY. HAS VOIDED SEVERAL TIMES TONIGHT IN URINAL.
--- NOTE | 2021-04-03 03:30 | NUR ---
PATIENT AWAKE, RESTLESS AND ANXIOUS. C/O NAUSEA. MEDICATED WITH XANAX FOR ANXIETY AND ZOFRAN FOR NAUSEA.
--- NOTE | 2021-04-03 04:15 | NUR ---
RESTING CALMLY AND QUIETLY AT THIS TIME. VSS. O2 SAT 91%
--- NOTE | 2021-04-03 05:30 | NUR ---
PATIENT SPILLED URINAL, GOWN AND CHUX CHANGED.
[2021-04-03 05:59] LABS: HEMATOCRIT 35.6 % (39.0-50.0); MEAN CELL VOLUME 92.7 fL CALC (80.0-100.0); MEAN CORPUSCULAR HGB 31.3 pG CALC (26.0-32.0); MEAN CORPUSCULAR HGB CONC 33.7 g/dL CAL (32.0-36.0); NEUT# 3.87 thou/uL (1.82-7.42); RED BLOOD COUNT 3.84 mill/uL (4.70-6.10); RED CELL DISTRI WIDTH 13.6 % (11.5-15.5)
--- NOTE | 2021-04-03 06:00 | NUR ---
O2 SAT MID 80'S. REMAINS ON VAPOTHERM 40 L/100%. PATIENT HAS BEEN OFFERED TO GO BACK ON BIPAP SEVERAL TIMES TONIGHT AND HE REFUSES. SR-ST ON MONITOR.
[2021-04-03 06:02] LABS: ALBUMIN 2.4 g/dL (3.2-5.0); CREATININE 1.4 mg/dL (0.7-1.3); POTASSIUM 4.3 mmol/l (3.5-5.1)
[2021-04-03 06:09] LABS: IMMATURE GRANULOCYTES 11.2 % (0.0-5.0)
--- NOTE | 2021-04-03 07:25 | NUR ---
pt awake in bed; very anxious; assessment completed at this time; pt alert to person and place; denies pain; no n/v noted; resp labored; lungs clear/ diminished; skin color pale; pt has removed o2; o2 re-applied with slow trend upward in o2 sat; bag liner dry cough noted; vapotherm intact at 40L/ 100% FiO2; hr reg; weak pedal pulses; trace pedal edema noted; st on the monitor; abd soft with bs present; no bm noted per speech writer; pt voiding clear yellow urine without complication; urinal at bedside; right chest port accessed with ivf infusing at 20cc/hr; no redness or edema noted at site; plan of care/ am meds explained; pt states "I am ready to go"; call light within reach; will continue to monitor
--- NOTE | 2021-04-03 07:45 | NUR ---
pt c nad. vss. long term care administrator to monitor.
--- NOTE | 2021-04-03 08:01 | NUR ---
awake in bed; pt very anxious; pt has removed o2 several times; o2 sat 60s; st on monitor; pt refusing bipap; bp elevated; st on monitor; staff at bedside for comfort/ reassurance; will continue to monitor
--- NOTE | 2021-04-03 08:08 | NUR ---
Dr Laguerre notified of HTN, tachycardia and hypoxia; pt continues refuse bipap; orders received and on chart
--- NOTE | 2021-04-03 08:12 | NUR ---
call placed to Krysta Bernal (spouse); updated on pt condition/ critical condition; informed of low o2 sat; spouse informed pt is not looking well at this time; spouse advised to visit from outside room is she wishes/ man has approved; will continue to monitor
--- NOTE | 2021-04-03 08:19 | NUR ---
Dr Carlotta benz at bedside to assess pt and discuss plan of care
--- NOTE | 2021-04-03 10:04 | NUR ---
resting in bed comfortably; resp labored; o2 per nc; sr/pvc on monitor; o2 sat 91%; call light within reach; will continue to monitor
--- NOTE | 2021-04-03 10:35 | NUR ---
spouse Krysta present outside of door; script writer at bedside to relay messages; will continue to monitor
--- NOTE | 2021-04-03 11:10 | NUR ---
Dr Laguerre present on unit to speak with spouse Anamaria Bernal
--- NOTE | 2021-04-03 12:00 | NUR ---
awake in bed; spouse has departed at this time; pt requesting more medication to "keep him easy"; pt resp are labored; o2 sat at 86%; iv intact and patent; sr/pvc on monitor; call light within reach; will continue to monitor
--- NOTE | 2021-04-03 12:15 | NUR ---
call received from from Johnathan Calle; information provided; nurse will call sba underwriter with an ETA
--- NOTE | 2021-04-03 14:15 | NUR ---
pt resting in bed with eyes closed; no resp slightly labored; sr on monitor; o2 per vapotherm; call light within reach; will continue to monitor
--- NOTE | 2021-04-03 14:21 | NUR ---
NO CHANGES AT THIS TIME. TILE CLASSIFIER TO M,ONITOR.
--- NOTE | 2021-04-03 14:28 | NUR ---
[facility] present on unit; update provided; [facility] to visit with pt
--- NOTE | 2021-04-03 15:09 | NUR ---
spouse present outside of door; [facility] has spoken with spouse and pt; pt has declinde Hospice
--- NOTE | 2021-04-03 16:15 | NUR ---
resting in bed with eyes closed; vapotherm continued; call light within reach; will continue to monitor
--- NOTE | 2021-04-03 16:33 | NUR ---
Dr Laguerre informed of pt decision to decline Hospice; pt adamant about only being made comfortable; will continue to monitor
--- NOTE | 2021-04-03 18:09 | NUR ---
pt awake in bed attempting to eat dinner; no apparent distress noted; resp slightly labored; o2 per vapotherm; sr/pvc on monitor; repositioned in bed; bath offered on several occasions/ declined per pt; port intact and patent; call light within reach
--- NOTE | 2021-04-03 19:35 | NUR ---
RESTING IN BED IN HIGH FOWLERS POSITON. AWAKE, ALERT AND ORIENTED ON ROUNDS. RESP LABORED. ON VAPOTHERM 40 L/100% O2. BREATH SOUNDS DIMINISHED. DRY COUGH PRESENT. PORT PREVIOUSLY ACCESSED TO RIGHT CHEST, DSG CDI., NS INFUSING AT 50 ML/HR. PHYSICAL DESIGN ENGINEER SHOWS SR WITH IVCD. VOIDS CLEAR JESSIKA URINE IN URINAL. DISCUSSED PLAN OF CARE. DENIES NEEDS AT THIS TIME. CALL NIEVES IN REACH.
--- NOTE | 2021-04-03 21:00 | NUR ---
SEVERAL FAMILY MEMBERS CALLING IN TO CHECK ON PATIENT. ASSISTED PATIENT TO MAKE A FEW CALLS ON HIS CELL PHONE.
--- NOTE | 2021-04-03 22:00 | NUR ---
RESTING WITH EYES CLOSED. RESP SLT LABORED. O2 SAT 91% VSS.
[2021-04-04] VITALS (11 sets, daily range): BP systolic 97–177; BP diastolic 59–88
--- NOTE | 2021-04-04 00:20 | NUR ---
CONTINUES RESTING WITH EYES CLOSED. VSS. SR WITH PVC'S AND IVCD.
--- NOTE | 2021-04-04 03:00 | NUR ---
INCONTINENT OF LARGE AMOUNT OF URINE IN BED. COMPLETE BED BATH GIVEN AND LINENS CHANGED. REMAINS ON VAPOTHERM 40 L/100% O2 SATS DROP INTO 40'S RO 50'S WITHOUT O2. PICK BACK UP INTO THE 70'S VERY SLOWLY WHEN O2 REPLACED. TURNED AND REPOSITIONED.
--- NOTE | 2021-04-04 05:22 | NUR ---
MEDICATED WITH MORPHINE FOR C/O PAIN. REPOSITIONED. VSS. SR-ST WITH PVC'S AND IVCD.
[2021-04-04 05:46] LABS: ALBUMIN 2.7 g/dL (3.2-5.0); BUN 28 mg/dL (8-23); CARBON DIOXIDE 23 mmol/l (22-30); CHLORIDE 105 mmol/l (95-108); CREATININE 1.3 mg/dL (0.7-1.3); GFR 53 ML/MIN (>=60 (CALC)); GFR FOR AFR.AMER. > 60 ML/MIN (>=60 (CALC)); POTASSIUM 4.3 mmol/l (3.5-5.1); SODIUM 135 mmol/l (137-146)
--- NOTE | 2021-04-04 07:45 | NUR ---
pt awake in bed; no apparent distress noted; pt offers no complaints; assessment completed at this time; pt alert and oriented to person and place; denies pain/ discomfort at this time; no n/v noted; resp slightly labored; lungs cleat/ diminished; skin color pale; o2 per vapotherm at 40/100%; drywall finisher foreman dry cough noted; hr reg; weak pedal pulses; trace pedal edema noted; st on monitor; abd soft with bs present; no bm noted per telegraphic typewriter installer; pt voiding clear dk yellow urine without complication; urinal at bedside; right chest port accessed with ivf infusing at 50cc/hr; no redness or edema noted site; plan of care/meds explained; call light within reach; will continue to monitor closely
--- NOTE | 2021-04-04 08:07 | NUR ---
awake in bed attempting to eat breakfast; no apparent distress noted; pt offers no complaints; iv intact and patent; st on monitor; call light within reach; will continue to monitor
--- NOTE | 2021-04-04 08:20 | NUR ---
tachycardia on moitor; o2 sat 43%; vapotherm intact and maintained; medicated with morphine; repositioned for comfort; will continue to monitor
--- NOTE | 2021-04-04 08:56 | NUR ---
PT ON [facility] AT THIS TIME. PT IS PROGRAMMER ENGINEERING AND SCIENTIFIC. NO RT INTERVENTIONS AT THIS TIME.
--- NOTE | 2021-04-04 09:19 | NUR ---
call placed to Krysta Bernal (Anna); informed of pt condition; pt sustained tachycardia 120-130 and sustained hypoxia 40s; spouse advised to visit;
--- NOTE | 2021-04-04 10:03 | NUR ---
freelance writer attempt to call sister Bailey Webb at [phone]; line with busy signal
--- NOTE | 2021-04-04 10:10 | NUR ---
return call placed to daughter Erika [phone]; updated on pt critical status; daughter informed immed family may visit briefly from outside of room
--- NOTE | 2021-04-04 10:16 | NUR ---
pt noted with labored resp; o2 sat 41%; resp rate 42; tachy 142 on monitor; pt arousable to speech; medicated with morphine; repositioned for comfort; will continue to monitor
--- NOTE | 2021-04-04 10:23 | NUR ---
newswriter spoke with sister Bailey; update provided; phone number updated [phone]
--- NOTE | 2021-04-04 10:30 | NUR ---
brother Sukh and spouse present outside door to visit; condition explained; departed quickly after arriving
--- NOTE | 2021-04-04 10:41 | NUR ---
brother Toby on unit to visit from outside door; visit approx 1 min and left; condition explained
--- NOTE | 2021-04-04 11:02 | NUR ---
call placed to sister Bailey off portable phone while in room with pt; Bailey able to speak over portable phone
--- NOTE | 2021-04-04 11:30 | NUR ---
pt remains tachycardic with labored resp of 40-50; o2 sat 30s; orders received and on chart
--- NOTE | 2021-04-04 12:05 | NUR ---
advertising copy writer at bedside to admin Ativan; pt noted with agonal resp; hr 102; ativan held; spouse Anamaria and daughter allowed outside of room; advertising copy writer remains with pt during transition;
--- NOTE | 2021-04-04 12:12 | NUR ---
specification writer remains at bedside; spouse and daughter outside of door; asystole; cardiopulmonary arrest; witnessed per this specification writer and Florence Bucio RN; TOD [id number]
--- NOTE | 2021-04-04 12:50 | NUR ---
[facility] Katlyn called per marketing writer; information provided; pt declined; referral # [id number]
--- NOTE | 2021-04-04 13:17 | NUR ---
call received from [facility] Jerri; pt released
--- NOTE | 2021-04-04 13:53 | NUR ---
Anamaria Bernal called per public relations writer; family still unsure of home; spouse to call public relations writer back shortly
--- NOTE | 2021-04-04 14:52 | NUR ---
received information from Anamaria Bernal to call [phone] [employer] for removal; called and spoke with Randal at [facility]; information provided; ETA 1.5-2 hours;
--- NOTE | 2021-04-04 16:31 | NUR ---
[facility] on unit to receive pt; pt released with transport staff;
== END 2021-04-04 12:12 | disposition expired | DRG 177 ==
LOC: ED 11:08 → ED-I 13:46 → ED 15:08 → ICU 15:09
PROVIDERS: Family Medicine; Internal Medicine Nephrology; Nurse Practitioner; ADMIT Internal Medicine; ATTEND Internal Medicine
PROC: 5A09357 Assistance with Respiratory Ventilation, Less than 24 Consecutive Hours, Continuous Positive Airway Pressure (ICD-10-PCS; principal; 2021-03-31)
PROC: XW033E5 Introduction of Remdesivir Anti-infective into Peripheral Vein, Percutaneous Approach, New Technology Group 5 (ICD-10-PCS; 2021-03-31)
DX: U07.1 COVID-19 (principal); J12.82 Pneumonia due to coronavirus disease 2019; J96.01 Acute respiratory failure with hypoxia; J44.0 Chronic obstructive pulmonary disease with (acute) lower respiratory infection; C83.10 Mantle cell lymphoma, unspecified site; E87.2 Acidosis; I24.8 Other forms of acute ischemic heart disease; I12.9 Hypertensive chronic kidney disease with stage 1 through stage 4 chronic kidney disease, or unspecified chronic kidney disease; N18.30 Chronic kidney disease, stage 3 unspecified; I25.10 Atherosclerotic heart disease of native coronary artery without angina pectoris; C14.0 Malignant neoplasm of pharynx, unspecified; E78.5 Hyperlipidemia, unspecified; D63.1 Anemia in chronic kidney disease; K80.20 Calculus of gallbladder without cholecystitis without obstruction; N40.0 Benign prostatic hyperplasia without lower urinary tract symptoms; R62.7 Adult failure to thrive; I25.2 Old myocardial infarction; T50.916A Underdosing of multiple unspecified drugs, medicaments and biological substances, initial encounter; Z91.128 Patient's intentional underdosing of medication regimen for other reason; Z66 Do not resuscitate; Z51.5 Encounter for palliative care; Z68.20 Body mass index [BMI] 20.0-20.9, adult; Z95.1 Presence of aortocoronary bypass graft; Z85.46 Personal history of malignant neoplasm of prostate; Z92.3 Personal history of irradiation; Z87.01 Personal history of pneumonia (recurrent); Z95.828 Presence of other vascular implants and grafts; Z79.899 Other long term (current) drug therapy
CPT/HCPCS: J1650; J2060; Q9967